=== PATIENT | female | born 2000 | race Caucasian/White ===

== ENCOUNTER 2022-05-25 16:39 | Emergency (ER) | payer MEDICAID, SELFPAY ==
[2022-05-25 16:54] VITALS: BP 106/64; PULSE 107; RESP 18; TEMP 36.8; O2SAT 96; BMI 26.4
[2022-05-25 17:49] LABS: Appearance Urine Clear (Clear); Bilirubin Urine Negative (Negative); Blood Urine 2+ (Negative); Color Urine Yellow (Yellow); Glucose Urine Negative (Negative); Ketones Urine Negative (Negative); Leukocyte Esterase Urine 3+ (Negative); Nitrite Urine Negative (Negative); Protein Urine Negative (Negative); Specific Gravity Urine 1.015 (1.000-1.030); Urobilinogen Urine 0.2 (0.2-1.0); pH Urine 6.5 (5.0-8.5)
[2022-05-25 18:03] LABS: Squamous Epithelial Cell Urine Few (None-Few); WBC Urine 25-50 (0-5)
[2022-05-25 18:04] LABS: Bacteria Urine Few
--- NOTE | 2022-05-25 18:12 | ED.GENADULT ---
HPI - General Adult General Chief complaint: Urogenital Problems, Female Stated complaint: Advised by clinic to come over for kidney Time Seen by Provider: 05/25/22 16:41 History of Present Illness HPI narrative: This 21-year-old female comes in with symptoms of dysuria for the past week. She has increased frequency, pain with voiding, and sense of incomplete emptying. She does not report any fevers. She is not indicating any flank pain. Related Data Previous Rx's Medication Instructions Recorded cephalexin 500 mg capsule 500 mg PO TID 7 days #21 caps 05/25/22 Allergies Allergy/AdvReac Type Severity Reaction Status Date / Time pumpkin Allergy Verified 05/25/22 16:54 horse fly Allergy Uncoded 05/25/22 16:54 Review of Systems Status of ROS: Reports: 10 or more systems reviewed and unremarkable except as noted in History and below Narrative: Constitutional: No fevers, no weight gain or loss. Eyes: No discharge. No vision changes. HENT: No congestion, no sore throat, no ear pain. Cardiovascular: No chest pain, no palpitations. Respiratory: No shortness of breath, no wheezes, no cough. Gastrointestinal: No vomiting, no diarrhea. Lower abdominal pain related to voiding urine. Genitourinary: No hematuria. Pain with voiding. Increased urgency and frequency. Musculoskeletal: Normal range of motion. Skin: No rashes, no pruritis. Neurological: No dizziness, weakness, sensory change, speech change. Endo/Heme/Allergies: No bruising or bleeding. No polydipsia. Pysch: no suicidality, no anxiety, no insomnia. All other systems reviewed and are negative. Exam Narrative: Exam Narrative: Constitutional: Well-developed, well-nourished, no acute distress. HEENT: Normocephalic, atraumatic. Neck: Normal range of motion. Nontender. Supple. Heart: Intact distal pulses. Lungs: No chest discomfort. No wheezes, rhonchi, or rales. Abdomen: Lower abdominal tenderness. No flank pain. Back: Normal range of motion. Extremities: Normal range of motion. No injury. Skin: Intact. No rash. Warm. No erythema or pallor. Neurologic: No altered sensation. No weakness. Alert and oriented. Psychiatric: No suicidality. No anxiety or depression. No insomnia. Nursing notes and vitals signs are reviewed. Const: Vital Signs, click to edit/add: Vital Signs - 24 hr 05/25/22 16:54 Temperature 98.3 F Pulse Rate [Right Pulse Oximeter] 107 H Respiratory Rate 18 Blood Pressure [Ri ght Upper Arm] 106/64 Pulse Oximetry 96 Oxygen Delivery Me thod Room Air Course Vital Signs Vital signs: Initial Vital Signs Temperature 98.3 F 05/25/22 16:54 Temperature Source Temporal Artery Scan 05/25/22 16:54 Pulse Rate 107 H 05/25/22 16:54 Respiratory Rate 18 05/25/22 16:54 Blood Pressure 106/64 05/25/22 16:54 Blood Pressure Mean 78 05/25/22 16:54 Blood Pressure Position Sitting 05/25/22 16:54 Pulse Oximetry 96 05/25/22 16:54 Oxygen Delivery Method 05/25/22 16:54 Vital Signs Temperature 98.3 F 05/25/22 16:54 Pulse Rate 107 H 05/25/22 16:54 Respiratory Rate 18 05/25/22 16:54 Blood Pressure 106/64 05/25/22 16:54 Pulse Oximetry 96 05/25/22 16:54 Oxygen Delivery Method 05/25/22 16:54 Temperature 98.3 F 05/25/22 16:54 Pulse Rate 107 H 05/25/22 16:54 Respiratory Rate 18 05/25/22 16:54 Blood Pressure 106/64 05/25/22 16:54 Pulse Oximetry 96 05/25/22 16:54 Oxygen Delivery Method 05/25/22 16:54 Medical Decision Making MDM Narrative Medical decision making narrative: This patient comes in with symptoms of dysuria for the past week or so. Urinalysis here today shows evidence of urinary tract infection. She does not appear toxic or show signs of more serious progression of this urinary tract infection. I did discuss options for further imaging and analysis which the patient declined in a process of shared decision making. She received a prescription for Keflex. I describe signs and symptoms that would indicate a need for return and re-evaluation. Lab Data Labs: Lab Results 05/25/22 Range/Units 17:37 Urine Color Yellow (Yellow) Urine Appearance Clear (Clear) Urine pH 6.5 (5.0-8.5) Ur Specific [place] 1.015 (1.000-1.030) Urine Protein Negative (Negative) Urine Glucose (UA) Negative (Negative) Urine Ketones Negative (Negative) Urine Blood 2+ A (Negative) Urine Nitrite Negative (Negative) Urine Bilirubin Negative (Negative) Urine Urobilinogen 0.2 (0.2-1.0) Ur Leukocyte Esterase 3+ A (Negative) Urine RBC 10-25 A (0-2) Urine WBC 25-50 A (0-5) Ur Squamous Epith Cells Few (None-Few) Urine Bacteria Few A (None) Discharge Plan Discharge Clinical Impression: Urinary tract infection Condition: Stable Instructions: Urinary Tract Infection in Women (ED) Additional Instructions: Take medication as prescribed. Follow up with MD or return if worsening. Prescriptions: New cephalexin 500 mg capsule 500 mg PO TID 7 Days Qty: 21 0RF Stand Alone Forms: [facility] Info Instructions
[2022-05-25 18:40] VITALS: PULSE 97; O2SAT 97
== END 2022-05-25 18:45 | disposition home or self-care (01) ==
PROVIDERS: Emergency Provider Emergency Medicine Emergency Medical Services
DX: N39.0 Urinary tract infection, site not specified (principal)
CPT/HCPCS: 81003; 81015; 87086; 99283; 99284

== ENCOUNTER 2022-06-01 17:47 | Emergency (ER) | payer MEDICAID, SELFPAY ==
[2022-06-01 18:50] VITALS: BP 119/83; PULSE 96; RESP 18; TEMP 35.6; O2SAT 97; BMI 26.4
[2022-06-01 19:03] LABS: Bacteria Urine Few; Squamous Epithelial Cell Urine Few (None-Few); WBC Urine 0-2 (0-5)
--- NOTE | 2022-06-01 19:49 | ED_ITS ---
HPI - General Adult General Chief complaint: Flank Pain Stated complaint: BLADDER INFECTION Time Seen by Provider: 06/01/22 18:09 History of Present Illness HPI narrative: This 21-year-old female was seen by me a week ago and treated for urinary tract infection. She returns today stating that she feels better except that she still has pain when voiding urine. She also reports some low back pain on occasion. She has not had any fevers. Related Data Previous Rx's Medication Instructions Recorded cephalexin 500 mg capsule 500 mg PO TID 7 days #21 caps 05/25/22 oxybutynin chloride 5 mg 5 mg PO DAILY #10 tabs 06/01/22 tablet,extended release 24 hr Allergies Allergy/AdvReac Type Severity Reaction Status Date / Time pumpkin Allergy Verified 05/25/22 16:54 horse fly Allergy Uncoded 05/25/22 16:54 Review of Systems Status of ROS: Reports: 10 or more systems reviewed and unremarkable except as noted in History and below Narrative: Constitutional: No fevers, no weight gain or loss. Eyes: No discharge. No vision changes. HENT: No congestion, no sore throat, no ear pain. Cardiovascular: No chest pain, no palpitations. Respiratory: No shortness of breath, no wheezes, no cough. Gastrointestinal: No abdominal pain, no vomiting, no diarrhea. Genitourinary: No dysuria, no hematuria. Musculoskeletal: Normal range of motion. Skin: No rashes, no pruritis. Neurological: No dizziness, weakness, sensory change, speech change. Endo/Heme/Allergies: No bruising or bleeding. No polydipsia. Pysch: no suicidality, no anxiety, no insomnia. All other systems reviewed and are negative. PFSH PFSH Social History Smoking Status: Current every day smoker Do you use any of these nicotine containing products: Vaping Products Second hand tobacco smoke exposure: No How often do you have a drink containing alcohol: monthly or less How many standard drinks containing alcohol do you have on a typical day: 1 or 2 How often do you have six or more drinks on one occasion: Never AUDIT-C Alcohol total score: 1 Non-prescribed substance use: denies use Exam Narrative: Exam Narrative: Constitutional: Well-developed, well-nourished, no acute distress. HEENT: Normocephalic, atraumatic. Neck: Normal range of motion. Nontender. Supple. Heart: Regular. No murmurs. Normal rate. Intact distal pulses. Lungs: Clear to auscultation. No chest discomfort. No wheezes, rhonchi, or rales. Abdomen: Normal bowel sounds. Nontender. No rebound tenderness. No flank tenderness when percussing over the kidneys. Genitalia: Deferred. Back: No midline tenderness. Normal range of motion. Extremities: Normal range of motion. No injury. Skin: Intact. No rash. Warm. No erythema or pallor. Neurologic: No altered sensation. No weakness. Alert and oriented. Psychiatric: No suicidality. No anxiety or depression. No insomnia. Nursing notes and vitals signs are reviewed. Const: Vital Signs, click to edit/add: Vital Signs - 24 hr 06/01/22 18:50 Temperature 96.1 F L Pulse Rate [Pulse Oximeter] 96 Respiratory Rate 18 Blood Pressure [Ri ght Upper Arm] 119/83 Pulse Oximetry 97 Oxygen Delivery Me thod Room Air Course Vital Signs Vital signs: Initial Vital Signs Temperature 96.1 F L 06/01/22 18:50 Temperature Source Temporal Artery Scan 06/01/22 18:50 Pulse Rate 96 06/01/22 18:50 Pulse Rhythm 06/01/22 18:50 Respiratory Rate 18 06/01/22 18:50 Blood Pressure 119/83 06/01/22 18:50 Blood Pressure Mean 95 06/01/22 18:50 Blood Pressure Position Sitting 06/01/22 18:50 Pulse Oximetry 97 06/01/22 18:50 Oxygen Delivery Method 06/01/22 18:50 Vital Signs Temperature 96.1 F L 06/01/22 18:50 Pulse Rate 96 06/01/22 18:50 Respiratory Rate 18 06/01/22 18:50 Blood Pressure 119/83 06/01/22 18:50 Pulse Oximetry 97 06/01/22 18:50 Oxygen Delivery Method 06/01/22 18:50 Temperature 96.1 F L 06/01/22 18:50 Pulse Rate 96 06/01/22 18:50 Respiratory Rate 18 06/01/22 18:50 Blood Pressure 119/83 06/01/22 18:50 Pulse Oximetry 97 06/01/22 18:50 Oxygen Delivery Method 06/01/22 18:50 Medical Decision Making MDM Narrative Medical decision making narrative: This patient returns after a week of taking Keflex for urinary tract infection. She continues to have some pain when voiding urine. Urinalysis today shows distinct improvement and no sign of infection. Urine culture is pending. The patient has 1 tablet of Keflex yet and I encouraged her to finish this medicine. It does not seem necessary to continue or change antibiotic treatment. I advised the patient to use [id number] peridium for symptomatic relief. I also provided a few tablets of oxybutynin that may give additional relief if needed. I gave signs and symptoms that would indicate a need for return and re- evaluation. Lab Data Labs: Lab Results 06/01/22 Range/Units 18:16 Urine RBC 2-5 A (0-2) Urine WBC 0-2 (0-5) Ur Squamous Epith Cells Few (None-Few) Urine Bacteria Few A (None) Discharge Plan Discharge Clinical Impression: Dysuria Condition: Unchanged Instructions: Dysuria (ED) Additional Instructions: Drink plenty of fluids. Take peridium (Azo, Uristat, Prodium) as needed and indicated. Use oxybutynin also if not improving. Return if worsening symptoms occur. Prescriptions: New oxybutynin chloride 5 mg tablet extended release 24hr 5 mg PO DAILY Qty: 10 2RF No Action cephalexin 500 mg capsule 500 mg PO TID 7 Days Qty: 21 0RF Follow Up/Referrals: Provider,Not a Local [Primary Care Provider] - Stand Alone Forms: [facility] Info Instructions
== END 2022-06-01 20:14 | disposition home or self-care (01) ==
PROVIDERS: Emergency Provider Emergency Medicine Emergency Medical Services
DX: R30.0 Dysuria (principal)
CPT/HCPCS: 81001; 81015; 87086; 99283; 99284

== ENCOUNTER 2022-10-18 09:16 | Emergency (ER) | payer MEDICAID, SELFPAY ==
[2022-10-18 09:22] VITALS: BP 122/79; PULSE 69; RESP 16; TEMP 37.4; O2SAT 97; BMI 28.3
--- NOTE | 2022-10-18 10:00 | ED.GENADULT ---
HPI - General Adult General Time Seen by Provider: 10:00 Date Seen: 10/18/22 Chief complaint: Urogenital Problems, Female Stated complaint: bladder pain and back kidney pain Time Seen by Provider: 10/18/22 10:00 Source: patient and RN notes reviewed Mode of arrival: ambulatory Limitations: no limitations History of Present Illness HPI narrative: This 22-year-old female comes to the ER accompanied by her mom with concern of bladder spasms and irritation. She has a history of UTIs per report as well as underlying bladder spasms. She saw her primary care doctor at the end of September and was requesting a refill of oxybutynin for bladder spasms. The primary care provider referred her to Urology. About 4 months ago she was given a week's course of oxybutynin which she felt helped her symptoms. She reports bladder spasms and pain. She has also had a little bit of pelvic pain that is been a little different recently, no noted fevers chills, no change in appetite. There is no history of kidney stones in herself or family that there where of. She is sexually active, is on oral contraceptives. Describes burning sensation with urination. Azo does help her symptoms when she takes it. Related Data Home Medications Medication Instructions Recorded Confirmed norgestimate 0.25 mg-ethinyl tab 10/18/22 estradiol 35 mcg tablet (Carmencita) sertraline 25 mg tablet mg 10/18/22 Previous Rx's Medication Instructions Recorded cephalexin 500 mg tablet 500 mg PO TID #15 tabs 10/18/22 phenazopyridine 100 mg tablet 100 mg PO TID #15 tabs 10/18/22 (Pyridium) Allergies Allergy/AdvReac Type Severity Reaction Status Date / Time pumpkin Allergy Verified 05/25/22 16:54 horse fly Allergy Uncoded 05/25/22 16:54 Review of Systems Status of ROS: Reports: 6 or more systems reviewed and unremarkable except as noted in History and below PFSH PFSH Social History Smoking Status: Current every day smoker Do you use any of these nicotine containing products: Vaping Products Second hand tobacco smoke exposure: No How often do you have a drink containing alcohol: monthly or less How many standard drinks containing alcohol do you have on a typical day: 1 or 2 How often do you have six or more drinks on one occasion: Never AUDIT-C Alcohol total score: 1 Non-prescribed substance use: denies use service: No Exam Const: Vital Signs, click to edit/add: Vital Signs - 24 hr 10/18/22 09:22 Temperature 99.3 F Pulse Rate [Left P ulse Oximeter] 69 Respiratory Rate 16 Blood Pressure [Le ft Upper Arm] 122/79 Pulse Oximetry 97 Oxygen Delivery Me thod Room Air Documenting provider has reviewed patient's vital signs: yes Common normals: no apparent distress, average body habitus, oriented x3, no limitations, healthy appearing, alert and well nourished HENMT: Common normals: normocephalic, head/scalp atraumatic and hearing grossly normal bilaterally Head and scalp: normocephalic and atraumatic Eye: Common normals: PERRL, EOMs intact bilaterally, conjunctivae normal and no scleral icterus Conjunctiva: conjunctiva(e) normal Pupil: PERRL Neck & C-Spine: Common normals: full ROM, no lymphadenopathy, supple, no meningeal signs, no JVD and thyroid normal Thyroid: thyroid normal Resp: Common normals: normal respiratory effort, no retractions, no use of accessory muscles and clear to auscultation bilaterally Auscultation: clear to auscultation bilaterally Cardio: Common normals: no JVD, regular rate, regular rhythm, S1 normal heart sound, S2 normal heart sound, no gallops, no clicks and no murmurs Rate: regular rate Rhythm: regular rhythm Heart sounds: S1 normal and S2 normal GI: Common normals: Normal to inspection, nondistended, normoactive bowel sounds present, soft to palpation, no hepatosplenomegaly and no masses Palpation: soft and no hepatosplenomegaly Other: Grimace on palpation of her abdomen throughout, but certainly no rebound or guarding, certainly no underlying palpable masses. : Common normals: no CVA tenderness Bladder/kidney exam: no CVA tenderness Bimanual exam- adnexa, other: cul-de-sac tenderness Recto-Vaginal: cul-de-sac tenderness Back & Pelvis: Common normals: no CVA tenderness Neuro: Common normals: oriented x3 Sensorium/orientation: alert Meningeal signs: no meningeal signs Course Course Hospital Course: Will obtain a CBC and basic metabolic panel to ensure normal kidney function. We will also have her provided a UA, confirm negative urine test. It is unlikely that this is ovarian pathology given that she is on oral contraceptives. Her symptoms certainly seem to be urinary in source an overactive bladder or dysfunctional bladder syndromes certainly are possibility. Need to rule out infectious etiology. Certainly does not seem to be consistent with any stone pathology. If there is significant changes on urinalysis, may consider imaging either in the form of renal ultrasound or CT. Reevaluation(s) Reevaluation #1: Reviewed with patient and her mom that her urinalysis is showing white cells but that there is significant contamination with squamous epithelial cells. We will obtain a urine culture. I would favor treating antibiotics in her with her chronicity of symptoms. Will initiate Keflex in give her peridium for symptom control. We will await the urine culture. If the antibiotics do not help her and the urine culture is indeed negative, this really does increase an underlying bladder disorder in my mind. We have discussed things like overactive bladder, interstitial cystitis. She has the appropriate follow-up scheduled at the end of October, just needs to try to make it to that appointment. If she is having issues in the interim, would refer her back to her primary care provider. Will not be initiating oxybutynin in this situation. Time: 11:11 Vital Signs Vital signs: Initial Vital Signs Temperature 99.3 F 10/18/22 09:22 Temperature Source Temporal Artery Scan 10/18/22 09:22 Pulse Rate 69 10/18/22 09:22 Pulse Rhythm 10/18/22 09:22 Pulse Strength 3+ Normal 10/18/22 09:22 Respiratory Rate 16 10/18/22 09:22 Blood Pressure 122/79 10/18/22 09:22 Blood Pressure Mean 93 10/18/22 09:22 Blood Pressure Position Sitting 10/18/22 09:22 Pulse Oximetry 97 10/18/22 09:22 Oxygen Delivery Method 10/18/22 09:22 Vital Signs Temperature 99.3 F 10/18/22 09:22 Pulse Rate 69 10/18/22 09:22 Respiratory Rate 16 10/18/22 09:22 Blood Pressure 122/79 10/18/22 09:22 Pulse Oximetry 97 10/18/22 09:22 Oxygen Delivery Method 10/18/22 09:22 Temperature 99.3 F 10/18/22 09:22 Pulse Rate 69 10/18/22 09:22 Respiratory Rate 16 10/18/22 09:22 Blood Pressure 122/79 10/18/22 09:22 Pulse Oximetry 97 10/18/22 09:22 Oxygen Delivery Method 10/18/22 09:22 Medical Decision Making Lab Data Lab results reviewed: Yes I reviewed the patient's lab results Labs: Lab Results 10/18/22 10/18/22 10/18/22 Range/Units 10:15 10:15 10:30 WBC 9.36 (4.50-11.00) K/uL RBC 4.70 (4.00-5.20) m/uL Hgb 13.6 (12.0-16.0) gm/dL Hct 39.7 (33.0-51.0) % MCV 85 (80-100) fL MCH 29 (26-34) pg MCHC 34 (32-36) gm/dL RDW Coeff of Hao 13.0 (11.5-15.5) % Plt Count 338 (140-440) K/uL Neut % (Auto) 71.2 (42.0-72.0) % Lymph % (Auto) 18.3 L (20-44) % [place] % (Auto) 8.3 (0.0-11.0) % Eos % (Auto) 1.7 (0.0-7.0) % Baso % (Auto) 0.3 (0.0-3.0) % Neut # (Auto) 6.66 (1.7-7.0) K/uL Lymph # (Auto) 1.70 (0.90-2.90) K/uL [place] # (Auto) 0.80 (0.00-0.90) K/UL Eos # (Auto) 0.16 (0.00-0.50) K/uL Baso # (Auto) 0.03 (0.00-0.30) K/uL Sodium 138 (135-149) mmol/L Potassium 4.2 (3.6-5.1) mmol/L Chloride 107 (96-114) mmol/L Carbon Dioxide 25 (20-32) mmol/L BUN 8 (5-24) mg/dL Creatinine 0.6 (0.5-1.5) mg/dL Estimated Creat Clear 107.43 Estimated GFR 132 ml/min Glucose 90 (60-115) mg/dL Calcium 8.9 (8.4-10.6) mg/dL Urine Color Yellow (Yellow) Urine Appearance Slightly Cloudy A (Clear) Urine pH 6.0 (5.0-8.5) Ur Specific [place] 1.025 (1.000-1.030) Urine Protein 2+ A (Negative) Urine Glucose (UA) Negative (Negative) Urine Ketones Negative (Negative) Urine Blood 2+ A (Negative) Urine Nitrite Negative (Negative) Urine Bilirubin Negative (Negative) Urine Urobilinogen 0.2 (0.2-1.0) Ur Leukocyte Esterase 2+ A (Negative) Urine RBC 2-5 A (0-2) Urine WBC 50-100 A (0-5) Ur Squamous Epith Cells Many A (None-Few) Urine Bacteria Few A (None) Urine HCG, Qual Negative (Negative) Critical Care Time Critical Care Time Critical Care Time: No Discharge Plan Discharge Clinical Impression: Dysuria Condition: Stable Instructions: Dysuria (ED), Overactive Bladder (DC), Interstitial Cystitis (ED) Additional Instructions: Start oral antibiotic and take as prescribed. Can use the pyridium as needed for symptom control. Keep the appointment with Urology that you have scheduled. Need to follow up with primary care provider with ongoing symptoms in the interim. Will contact you if the urine culture does grow anything and you require a change of antibiotics. Activity Level: Activity as Tolerated Discharge Diet: Regular Prescriptions: New cephalexin 500 mg tablet 500 mg PO TID Qty: 15 0RF phenazopyridine [Pyridium] 100 mg tablet 100 mg PO TID Qty: 15 0RF No Action norgestimate-ethinyl estradiol [Carmencita] 0.25-35 mg-mcg tablet Label Comments: TAKE 1 TABLET BY MOUTH EVERY DAY sertraline 25 mg tablet Label Comments: TAKE 1 TABLET BY MOUTH EVERY MORNING Follow Up/Referrals: Provider,Not a Local [Primary Care Provider] - Stand Alone Forms: [facility] Info Instructions
[2022-10-18 10:23] LABS: Basophils Absolute Auto 0.03 K/uL (0.00-0.30); Basophils Percent Auto 0.3 % (0.0-3.0); Eosinophils Absolute Auto 0.16 K/uL (0.00-0.50); Eosinophils Percent Auto 1.7 % (0.0-7.0); Hematocrit 39.7 % (33.0-51.0); Hemoglobin* 13.6 gm/dL (12.0-16.0); Immature Granulocytes Abs Auto 0.02 K/uL (0.00-0.30); Immature Granulocytes Pct Auto 0.2 %; Lymphocytes Percent Auto 18.3 % (20-44); Mean Corpuscular HGB Conc 34 gm/dL (32-36); Mean Corpuscular Hemoglobin 29 pg (26-34); Mean Corpuscular Volume 85 fL (80-100); Monocytes Percent Auto 8.3 % (0.0-11.0); Neutrophils Absolute Auto 6.66 K/uL (1.7-7.0); Neutrophils Percent Auto 71.2 % (42.0-72.0); Platelet Count* 338 K/uL (140-440); White Blood Count* 9.36 K/uL (4.50-11.00)
[2022-10-18 10:24] LABS: Slide Review Reflex No
[2022-10-18 10:37] LABS: Appearance Urine Slightly Cloudy (Clear); Bilirubin Urine Negative (Negative); Blood Urine 2+ (Negative); Color Urine Yellow (Yellow); Glucose Urine Negative (Negative); Ketones Urine Negative (Negative); Leukocyte Esterase Urine 2+ (Negative); Nitrite Urine Negative (Negative); Protein Urine 2+ (Negative); Specific Gravity Urine 1.025 (1.000-1.030); Urobilinogen Urine 0.2 (0.2-1.0)
[2022-10-18 10:38] LABS: Chloride* 107 mmol/L (96-114); Potassium* 4.2 mmol/L (3.6-5.1); Sodium* 138 mmol/L (135-149)
[2022-10-18 10:41] LABS: Blood Urea Nitrogen* 8 mg/dL (5-24); Calcium* 8.9 mg/dL (8.4-10.6); Carbon Dioxide* 25 mmol/L (20-32); Creatinine* 0.6 mg/dL (0.5-1.5); Est. Creatinine Clearance* 107.43; Estimated Glomerular Filt Rate 132 ml/min; Glucose* 90 mg/dL (60-115)
[2022-10-18 10:57] LABS: Bacteria Urine Few; Squamous Epithelial Cell Urine Many (None-Few); Ur HCG Qualitative* Negative (Negative); WBC Urine 50-100 (0-5)
== END 2022-10-18 11:27 | disposition home or self-care (01) ==
PROVIDERS: Emergency Provider Family Medicine
DX: R30.0 Dysuria (principal)
CPT/HCPCS: 36415; 80048; 81001; 81025; 85025; 87086; 99283; 99284

== ENCOUNTER 2022-10-25 09:36 | Emergency (ER) | payer MEDICAID, SELFPAY ==
[2022-10-25 09:56] VITALS: BP 114/73; PULSE 83; RESP 18; TEMP 36.7; O2SAT 97
[2022-10-25 11:57] LABS: Appearance Urine Clear (Clear); Bilirubin Urine Negative (Negative); Blood Urine 2+ (Negative); Color Urine Yellow (Yellow); Glucose Urine Negative (Negative); Ketones Urine Negative (Negative); Leukocyte Esterase Urine 1+ (Negative); Nitrite Urine Negative (Negative); Protein Urine 1+ (Negative); Specific Gravity Urine >= 1.030 (1.000-1.030); Urobilinogen Urine 0.2 (0.2-1.0); pH Urine 5.5 (5.0-8.5)
[2022-10-25 12:20] LABS: RBC Urine 0-2 (0-2); WBC Urine 0-2 (0-5)
[2022-10-25 12:21] LABS: Bacteria Urine Few; Squamous Epithelial Cell Urine Few (None-Few)
== END 2022-10-25 13:49 | disposition home or self-care (01) ==
LOC: ED 13:43
PROVIDERS: Emergency Medicine
DX: Z53.29 Procedure and treatment not carried out because of patient's decision for other reasons (principal)
CPT/HCPCS: 81001; 87086; 99282

== ENCOUNTER 2023-01-30 18:17 | Emergency (ER) | payer MEDICAID, SELFPAY ==
[2023-01-30 18:29] VITALS: BP 116/65; PULSE 116; RESP 16; TEMP 37; O2SAT 96; BMI 27.3
[2023-01-30 19:25] LABS: PCR FLU A Negative PCR FLU A (Negative); PCR FLU B Negative PCR FLU B (Negative); PCR RSV Negative PCR RSV (Negative)
[2023-01-30 19:43] LABS: SARS PCR* Negative SARS-CoV-2 (Negative); Strep A DNA Probe* NOT DETECTED (Not Detectd)
[2023-01-30 21:00] VITALS: BP 125/78; PULSE 84; RESP 16; TEMP 36.7; O2SAT 96
--- NOTE | 2023-01-30 21:09 | ED_ITS ---
HPI - General Adult General Time Seen by Provider: 21:09 Date Seen: 01/30/23 Chief complaint: Fever Stated complaint: Congested Fever Cough Sore throat Time Seen by Provider: 01/30/23 21:09 Source: patient and RN notes reviewed Mode of arrival: ambulatory Limitations: no limitations History of Present Illness HPI narrative: Patient is a 22-year-old female coming in with concern of her right eye mattering which started today. She is also concerned because she states she is in pain. Her head hurts, her forehead hurts. She has sinus pressure. Ears are okay. She has had a sore throat with this. She has had cough cold symptoms. She has got mucopurulent nasal drainage. She has been sick since last week. Nursing staff had collected the viral triple swab as well as a strep on arrival, I am able to share with her that these are negative at this time. A little while before that she states she was sick with a stomach illness. Related Data Home Medications Medication Instructions Recorded Confirmed norgestimate 0.25 mg-ethinyl tab 10/18/22 estradiol 35 mcg tablet (Carmencita) sertraline 25 mg tablet mg 10/18/22 Previous Rx's Medication Instructions Recorded cephalexin 500 mg tablet 500 mg PO TID #15 tabs 10/18/22 phenazopyridine 100 mg tablet 100 mg PO TID #15 tabs 10/18/22 (Pyridium) amoxicillin 875 mg tablet 875 mg PO BID #20 tabs 01/30/23 Allergies Allergy/AdvReac Type Severity Reaction Status Date / Time pumpkin Allergy Verified 05/25/22 16:54 horse fly Allergy Uncoded 05/25/22 16:54 Review of Systems Narrative: As per HPI PFSH PFSH Social History Smoking Status: Current every day smoker Do you use any of these nicotine containing products: Vaping Products Second hand tobacco smoke exposure: No How often do you have a drink containing alcohol: monthly or less How many standard drinks containing alcohol do you have on a typical day: 1 or 2 How often do you have six or more drinks on one occasion: Never AUDIT-C Alcohol total score: 1 Non-prescribed substance use: denies use service: No Exam Const: Vital Signs, click to edit/add: Vital Signs - 24 hr 01/30/23 18:29 Temperature 98.6 F Pulse Rate [Pulse Oximeter] 116 H Respiratory Rate 16 Blood Pressure [Ri ght Upper Arm] 116/65 Pulse Oximetry 96 Documenting provider has reviewed patient's vital signs: yes Common normals: no apparent distress, average body habitus, oriented x3, no limitations, healthy appearing, alert and well nourished General appearance: cooperative, comfortable, well kempt and well developed HENMT: Common normals: normocephalic, head/scalp atraumatic, hearing grossly normal bilaterally, external ears normal, EAC's normal, TM's normal bilaterally (But with some inferior scarring bilaterally), external nose normal, nasal mucous membranes and turbinates normal, moist oral mucous membranes, oropharynx normal, dentition normal and gingiva normal Head and scalp: normocephalic and atraumatic Nose: external nose normal and nasal mucous membranes and turbinates normal External ear: external ears normal External auditory canal: EAC's normal Tympanic membrane: TM's normal bilaterally (But with some inferior scarring bilaterally) Eye: Common normals: PERRL, EOMs intact bilaterally and no scleral icterus Pupil: PERRL Other: Has conjunctival erythema, watering/mattering right eye. No periorbital swelling. Left is normal Neck & C-Spine: Common normals: full ROM, no lymphadenopathy, supple and no meningeal signs Resp: Common normals: normal respiratory effort, no retractions, no use of accessory muscles and clear to auscultation bilaterally Auscultation: clear to auscultation bilaterally Cardio: Common normals: regular rate, regular rhythm, S1 normal heart sound, S2 normal heart sound, no gallops, no clicks and no murmurs Rate: regular rate Rhythm: regular rhythm Heart sounds: S1 normal and S2 normal Neuro: Common normals: oriented x3 Sensorium/orientation: alert Meningeal signs: no meningeal signs Psych: Appearance: well kempt Course Course Hospital Course: Will get patient gentamicin eye drops from our I tray. We will do a CBC to help differentiate of this is underlying viral or possible bacterial etiology. If white count is elevated will consider antibiotics. Do not feel she needs a chest x-ray or other further testing at this time. Reevaluation(s) Reevaluation #1: Have reviewed with patient that her CBC is elevated, would reflect bacterial etiology. I do think we should consider antibiotics, believe this is probably sinusitis that she is suffering from. We will give a dose of oral antibiotics here and send the rest of the prescription into her pharmacy to start tomorrow as per our discussion. We have gentamicin eyedrops for her. Time: 21:51 Vital Signs Vital signs: Initial Vital Signs Temperature 98.6 F 01/30/23 18:29 Temperature Source Temporal Artery Scan 01/30/23 18:29 Pulse Rate 116 H 01/30/23 18:29 Respiratory Rate 16 01/30/23 18:29 Blood Pressure 116/65 01/30/23 18:29 Blood Pressure Mean 82 01/30/23 18:29 Pulse Oximetry 96 01/30/23 18:29 Vital Signs Temperature 98.6 F 01/30/23 18:29 Pulse Rate 116 H 01/30/23 18:29 Respiratory Rate 16 01/30/23 18:29 Blood Pressure 116/65 01/30/23 18:29 Pulse Oximetry 96 01/30/23 18:29 Temperature 98.6 F 01/30/23 18:29 Pulse Rate 116 H 01/30/23 18:29 Respiratory Rate 16 01/30/23 18:29 Blood Pressure 116/65 01/30/23 18:29 Pulse Oximetry 96 01/30/23 18:29 Medical Decision Making Lab Data Lab results reviewed: Yes I reviewed the patient's lab results Labs: Lab Results 01/30/23 01/30/23 Range/Units 18:34 21:26 WBC 13.17 H (4.50-11.00) K/uL RBC 4.31 (4.00-5.20) m/uL Hgb 12.4 (12.0-16.0) gm/dL Hct 37.6 (33.0-51.0) % MCV 87 (80-100) fL MCH 29 (26-34) pg MCHC 33 (32-36) gm/dL RDW Coeff of Hao 12.7 (11.5-15.5) % Plt Count 301 (140-440) K/uL Neut % (Auto) 79.4 H (42.0-72.0) % Lymph % (Auto) 11.4 L (20-44) % [place] % (Auto) 7.3 (0.0-11.0) % Eos % (Auto) 1.5 (0.0-7.0) % Baso % (Auto) 0.2 (0.0-3.0) % Neut # (Auto) 10.50 H (1.7-7.0) K/uL Lymph # (Auto) 1.50 (0.90-2.90) K/uL [place] # (Auto) 1.00 H (0.00-0.90) K/UL Eos # (Auto) 0.20 (0.00-0.50) K/uL Baso # (Auto) 0.00 (0.00-0.30) K/uL SARS-CoV-2 (PCR) Negative SARS-CoV-2 (Negative) Influenza Type A (PCR) Negative PCR FLU A (Negative) Influenza Type B (PCR) Negative PCR FLU B (Negative) RSV (PCR) Negative PCR RSV (Negative) Group A Strep DNA NOT DETECTED (Not Detectd) Discharge Plan Discharge Clinical Impression: Acute conjunctivitis, Sinusitis Patient Disposition: Home, Self-Care Condition: Stable Instructions: Sinusitis (ED), Conjunctivitis (ED) Additional Instructions: Use gentamicin eye drops, 2 drops to right eye 4x/day for up to 5 days; can use the same way in the left eye if you develop pink eye in that eye. Next dose of oral antibiotics due tomorrow morning, take as prescribed. Can use Tylenol/ibuprofen as needed for discomfort, follow bottle directions for dosing. Wash hands good to stop spread of pink eye. If you are not improving over the next week, or worsening at any point or have further concerns, please seek re- evaluation. Activity Level: Activity as Tolerated Discharge Diet: Regular Prescriptions: New amoxicillin 875 mg tablet 875 mg PO BID Qty: 20 0RF No Action norgestimate-ethinyl estradiol [Carmenciat] 0.25-35 mg-mcg tablet Patient Comments: TAKE 1 TABLET BY MOUTH EVERY DAY sertraline 25 mg tablet Patient Comments: TAKE 1 TABLET BY MOUTH EVERY MORNING cephalexin 500 mg tablet 500 mg PO TID Qty: 15 0RF phenazopyridine [Pyridium] 100 mg tablet 100 mg PO TID Qty: 15 0RF Follow Up/Referrals: Provider,Not a Local [Primary Care Provider] - Stand Alone Forms: [facility] Info Instructions
[2023-01-30 21:32] LABS: Basophils Percent Auto 0.2 % (0.0-3.0); Eosinophils Percent Auto 1.5 % (0.0-7.0); Hematocrit 37.6 % (33.0-51.0); Hemoglobin* 12.4 gm/dL (12.0-16.0); Immature Granulocytes Pct Auto 0.2 %; Lymphocytes Percent Auto 11.4 % (20-44); Mean Corpuscular HGB Conc 33 gm/dL (32-36); Mean Corpuscular Hemoglobin 29 pg (26-34); Mean Corpuscular Volume 87 fL (80-100); Monocytes Percent Auto 7.3 % (0.0-11.0); Neutrophils Percent Auto 79.4 % (42.0-72.0); Platelet Count* 301 K/uL (140-440); RDW Coefficient of Variation % 12.7 % (11.5-15.5); Red Blood Count 4.31 m/uL (4.00-5.20); White Blood Count* 13.17 K/uL (4.50-11.00)
[2023-01-30 21:46] LABS: Slide Review Reflex No
[2023-01-30] MEDS: AMOXICILLIN 250 MG CAPSULE 500 MG PO (22:00)
[2023-01-30 22:10] VITALS: BP 110/70; PULSE 89; RESP 16; TEMP 36.7; O2SAT 96
[2023-01-30 22:22] VITALS: BP 110/70; PULSE 89; RESP 16; TEMP 36.7
== END 2023-01-30 22:23 | disposition home or self-care (01) ==
PROVIDERS: Emergency Provider Family Medicine
DX: H10.9 Unspecified conjunctivitis (principal); J32.9 Chronic sinusitis, unspecified
CPT/HCPCS: 36415; 85025; 87631; 87651; 99283; 99284; A9270

== ENCOUNTER 2023-03-21 17:59 | Emergency (ER) | payer MEDICAID, SELFPAY ==
[2023-03-21 18:01] VITALS: BP 126/91; PULSE 108; RESP 18; TEMP 36.6; O2SAT 95; BMI 4021.6
[2023-03-21 18:51] LABS: Appearance Urine Cloudy (Clear); Bilirubin Urine Negative (Negative); Blood Urine 1+ (Negative); Color Urine Yellow (Yellow); Glucose Urine Negative (Negative); Ketones Urine Negative (Negative); Specific Gravity Urine >= 1.030 (1.000-1.030)
[2023-03-21 18:52] LABS: Bacteria Urine Few; Leukocyte Esterase Urine 1+ (Negative); Nitrite Urine Positive (Negative); Protein Urine 2+ (Negative); RBC Urine 0-2 (0-2); Squamous Epithelial Cell Urine Few (None-Few); Urobilinogen Urine 0.2 (0.2-1.0); pH Urine 5.5 (5.0-8.5)
[2023-03-21 18:53] LABS: Fine Granular Casts Urine Few
--- NOTE | 2023-03-21 19:23 | ED_ITS ---
HPI - General Adult General Chief complaint: Urogenital Problems, Female Stated complaint: Bladder issues Time Seen by Provider: 03/21/23 18:04 Source: patient Mode of arrival: ambulatory Limitations: no limitations History of Present Illness HPI narrative: 22-year-old female coming in today complaining of dysuria and increased urgency for 3 weeks on and off. Her symptoms do come and go. She states that she has frequent UTIs. States that she had a full workup the beginning of October and found out that she had chlamydia at that time. However she has had dysuria before that diagnosis and continues to have it after. Related Data Home Medications Medication Instructions Recorded Confirmed norgestimate 0.25 mg-ethinyl 1 tab DAILY 10/18/22 estradiol 35 mcg tablet (Carmencita) sertraline 25 mg tablet 25 mg PO Q24H 10/18/22 03/21/23 Previous Rx's Medication Instructions Recorded cephalexin 500 mg tablet 500 mg PO TID #15 tabs 10/18/22 phenazopyridine 100 mg tablet 100 mg PO TID #15 tabs 10/18/22 (Pyridium) amoxicillin 875 mg tablet 875 mg PO BID #20 tabs 01/30/23 sulfamethoxazole 800 1 tab PO BID 5 days #10 tabs 03/21/23 mg-trimethoprim 160 mg tablet (Bactrim DS) Allergies Allergy/AdvReac Type Severity Reaction Status Date / Time pumpkin Allergy Verified 05/25/22 16:54 horse fly Allergy Uncoded 05/25/22 16:54 Review of Systems Status of ROS: Reports: 10 or more systems reviewed and unremarkable except as noted in History and below PFSH PFS Medical History GERD (gastroesophageal reflux disease) ?K21.9 - Gastro-esophageal reflux disease without esophagitis (ICD-10) Urinary obstruction ?N13.9 - Obstructive and reflux uropathy, unspecified (ICD-10) Major depressive disorder, single episode, severe ?F32.2 - Major depressive disorder, single episode, severe without psychotic features (ICD-10) Reflux esophagitis ?K21.00 - Gastro-esophageal reflux disease with esophagitis, without bleeding (ICD-10) Surgical History History of ear surgery ?Z98.890 - Other specified postprocedural states (ICD-10) Social History Smoking Status: Current every day smoker Do you use any of these nicotine containing products: Vaping Products Second hand tobacco smoke exposure: No How often do you have a drink containing alcohol: monthly or less How many standard drinks containing alcohol do you have on a typical day: 1 or 2 How often do you have six or more drinks on one occasion: Never AUDIT-C Alcohol total score: 1 Non-prescribed substance use: denies use service: No Exam 2 Narrative: Exam Narrative: Well-nourished well-developed patient in no acute distress. Alert and oriented. Answers questions appropriately. Mood and affect are appropriate. Thoughts are goal oriented and rational. No tangential or magical thinking noted. Patient speaks in full sentences without needing to catch her breath. HEENT: Normocephalic atraumatic. Pupils are equally round reactive to light. Extraocular muscles are intact. Conjunctivae are moist without any icterus noted. Moist mucous membranes. Abdomen soft and nontender. Skin: Well perfused without any obvious rashes. Const: Vital Signs, click to edit/add: Vital Signs - 24 hr 03/21/23 18:01 Temperature 97.9 F Pulse Rate [Right Pulse Oximeter] 108 H Respiratory Rate 18 Blood Pressure [Ri ght Upper Arm] 126/91 H Pulse Oximetry 95 Oxygen Delivery Me thod Room Air Course Course Hospital Course: UA showing abnormalities consistent with a UTI. Vital Signs Vital signs: Initial Vital Signs Temperature 97.9 F 03/21/23 18:01 Temperature Source Temporal Artery Scan 03/21/23 18:01 Pulse Rate 108 H 03/21/23 18:01 Respiratory Rate 18 03/21/23 18:01 Blood Pressure 126/91 H 03/21/23 18:01 Blood Pressure Mean 102 03/21/23 18:01 Blood Pressure Position Sitting 03/21/23 18:01 Pulse Oximetry 95 03/21/23 18:01 Oxygen Delivery Method Room Air 03/21/23 18:01 Vital Signs Temperature 97.9 F 03/21/23 18:01 Pulse Rate 108 H 03/21/23 18:01 Respiratory Rate 18 03/21/23 18:01 Blood Pressure 126/91 H 03/21/23 18:01 Pulse Oximetry 95 03/21/23 18:01 Oxygen Delivery Method Room Air 03/21/23 18:01 Temperature 97.9 F 03/21/23 18:01 Pulse Rate 108 H 03/21/23 18:01 Respiratory Rate 18 03/21/23 18:01 Blood Pressure 126/91 H 03/21/23 18:01 Pulse Oximetry 95 03/21/23 18:01 Oxygen Delivery Method Room Air 03/21/23 18:01 Medical Decision Making MDM Narrative Medical decision making narrative: 22-year-old female with a UTI will treat with Bactrim DS p.o. b.i.d. for 5 days. I do want her to follow up with her primary care provider to discuss recurrent UTIs which is something she tells me she has not yet done. Lab Data Lab results reviewed: Yes I reviewed the patient's lab results Labs: Lab Results 03/21/23 Range/Units 18:34 Urine Color Yellow (Yellow) Urine Appearance Cloudy A (Clear) Urine pH 5.5 (5.0-8.5) Ur Specific [place] >= 1.030 (1.000-1.030) Urine Protein 2+ A (Negative) Urine Glucose (UA) Negative (Negative) Urine Ketones Negative (Negative) Urine Blood 1+ A (Negative) Urine Nitrite Positive A (Negative) Urine Bilirubin Negative (Negative) Urine Urobilinogen 0.2 (0.2-1.0) Ur Leukocyte Esterase 1+ A (Negative) Urine RBC 0-2 (0-2) Urine WBC 10-25 A (0-5) Ur Squamous Epith Cells Few (None-Few) Urine Bacteria Few A (None) Fine Granular Casts Few A (None) Discharge Plan Discharge Clinical Impression: Urinary tract infection Patient Disposition: Home, Self-Care Condition: Stable Additional Instructions: Take all antibiotics as prescribed. I recommend you follow-up with your primary care provider to discuss frequent UTIs. Prescriptions: New sulfamethoxazole-trimethoprim [Bactrim DS] 800-160 mg tablet 1 tab PO BID 5 Days Qty: 10 0RF No Action norgestimate-ethinyl estradiol [Carmencita] 0.25-35 mg-mcg tablet 1 tab DAILY Patient Comments: TAKE 1 TABLET BY MOUTH EVERY DAY sertraline 25 mg tablet 25 mg PO Q24H Patient Comments: TAKE 1 TABLET BY MOUTH EVERY MORNING cephalexin 500 mg tablet 500 mg PO TID Qty: 15 0RF phenazopyridine [Pyridium] 100 mg tablet 100 mg PO TID Qty: 15 0RF amoxicillin 875 mg tablet 875 mg PO BID Qty: 20 0RF Follow Up/Referrals: Provider,Not a Local [Primary Care Provider] - Stand Alone Forms: [facility] Info Instructions
== END 2023-03-21 19:36 | disposition home or self-care (01) ==
PROVIDERS: Emergency Provider Family Medicine
DX: N39.0 Urinary tract infection, site not specified (principal)
CPT/HCPCS: 81001; 87086; 99283; 99284

== ENCOUNTER 2023-07-19 21:40 | Emergency (ER) | payer MEDICAID, SELFPAY ==
[2023-07-19 22:00] VITALS: BP 117/82; PULSE 81; RESP 18; TEMP 36.8; O2SAT 99; BMI 29.3
--- NOTE | 2023-07-19 22:04 | ED.FEMALEGU ---
HPI - Female Genitourinary General Time Seen by Provider: 22:04 Date Seen: 07/19/23 Chief complaint: Urogenital Problems, Female Stated complaint: bladder infection Time Seen by Provider: 07/19/23 22:03 Source: patient and RN notes reviewed Mode of arrival: ambulatory Limitations: no limitations History of Present Illness HPI Narrative: Patient is a 22-year-old female coming in with concern ongoing a bladder infection that is not improving. She states she gets bladder infections, she wants to get to the bottom of these. She was at a medical provider last week, wanted to be admitted for further workup of her bladder infections. She was placed on Macrobid on July 17, has been taking it. 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 She states going over bumps hurts. She will feel a electrical jolt going up the urethra area. She states it hurts to walk, will feel the same thing going into the urethra. She states it is hurting to pee still. She has been to Urology, thinks she was last there in October, she states the lady put a catheter up into her an she states she was treated for chlamydia. She states she did the follow-up and the chlamydia was gone. She does not think she has been subsequently tested for it. She notes no nausea vomiting, no fevers or chills. She is sexually active. MD elicited complaint: UTI Related Data Home Medications Medication Instructions Recorded Confirmed nitrofurantoin 1 cap PO BID 07/19/23 07/19/23 monohydrate/macrocrystals 100 mg capsule Previous Rx's Medication Instructions Recorded phenazopyridine 100 mg tablet 100 mg PO TID PRN pain #15 tabs 07/19/23 (Pyridium) Allergies Allergy/AdvReac Type Severity Reaction Status Date / Time melatonin AdvReac Mild Nausea/Vomi Verified 07/19/23 22:06 ting Review of Systems Narrative: As per HPI. PFS PFS Medical History GERD (gastroesophageal reflux disease) ?K21.9 - Gastro-esophageal reflux disease without esophagitis (ICD-10) Urinary obstruction ?N13.9 - Obstructive and reflux uropathy, unspecified (ICD-10) Major depressive disorder, single episode, severe ?F32.2 - Major depressive disorder, single episode, severe without psychotic features (ICD-10) Reflux esophagitis ?K21.00 - Gastro-esophageal reflux disease with esophagitis, without bleeding (ICD-10) Surgical History History of ear surgery ?Z98.890 - Other specified postprocedural states (ICD-10) Social History Smoking Status: Never smoker Do you use any of these nicotine containing products: Vaping Products Second hand tobacco smoke exposure: No How often do you have a drink containing alcohol: monthly or less How many standard drinks containing alcohol do you have on a typical day: 1 or 2 How often do you have six or more drinks on one occasion: Never AUDIT-C Alcohol total score: 1 Non-prescribed substance use: denies use service: No Exam Const: Vital Signs, click to edit/add: Vital Signs - 24 hr 07/19/23 22:00 07/19/23 22:52 Temperature 98.2 F 98.2 F Pulse Rate [Right Pulse Oximeter] 81 79 Respiratory Rate 18 18 Blood Pressure [Ri ght Upper Arm] 117/82 120/70 Pulse Oximetry 99 99 Oxygen Delivery Me thod Room Air Room Air 22-year-old female seen in exam room 3, she is lying in the bed, looks comfortable, is alert interactive, no apparent distress. Sclera clear, face atraumatic, able speak in complete sentences. Lungs are clear, good air entry no wheezing crackles. CV regular rate and rhythm no murmur. Abdomen is soft, nondistended, bowel sounds are present. No organomegaly, has some suprapubic tenderness when I palpate but certainly no rebound or guarding, do not feel any masses. Pelvic exam at this point is deferred. Documenting provider has reviewed patient's vital signs: yes Course Course ED Course: Patient had already left a urine specimen which needs to be ran by lab. Have discussed with her that I do think we should do a pelvic exam and collect GC and chlamydia swab. She is declining doing this at this point, urged her to consider this. Can do some basic lab work to ensure her white count and kidney functions are normal. She did agree to that. Will await the urinalysis at this point. Reevaluation(s) Time of Reevaluation #1: 23:21 Reevaluation #1: Reviewed with patient that her cell counts and basic metabolic panel are all normal. Her urinalysis shows some very minimal abnormalities with few red cells, few white cells few bacteria. She is only been on the Macrobid for 2 days, do not feel that this is sufficient to say she is not responding. Her urine certainly does not look all that bad. She understands will be doing a urine culture, if there is indication for antibiotic change, we can do so from our culture. We discussed signs and symptoms of worsening. She now has people in the room with her, I did ask her if she would comply with me completing the other test we talked about earlier. She is adamant she does not want this done. I have asked her to follow up with her primary care provider to have this tested, meaning the chlamydia and gonorrhea that we discussed earlier. She did state understanding and shook her head yes. Vital Signs Vital signs: Initial Vital Signs Temperature 98.2 F 07/19/23 22:00 Temperature Source Temporal Artery Scan 07/19/23 22:00 Pulse Rate 81 07/19/23 22:00 Respiratory Rate 18 07/19/23 22:00 Blood Pressure 117/82 07/19/23 22:00 Blood Pressure Mean 93 07/19/23 22:00 Blood Pressure Position Sitting 07/19/23 22:00 Pulse Oximetry 99 07/19/23 22:00 Oxygen Delivery Method Room Air 07/19/23 22:00 Vital Signs Temperature 98.2 F 07/19/23 22:00 Pulse Rate 81 07/19/23 22:00 Respiratory Rate 18 07/19/23 22:00 Blood Pressure 117/82 07/19/23 22:00 Pulse Oximetry 99 07/19/23 22:00 Oxygen Delivery Method Room Air 07/19/23 22:00 Temperature 98.2 F 07/19/23 22:52 Pulse Rate 79 07/19/23 22:52 Respiratory Rate 18 07/19/23 22:52 Blood Pressure 120/70 07/19/23 22:52 Pulse Oximetry 99 07/19/23 22:52 Oxygen Delivery Method Room Air 10/11/23 22:52 MDM - Female Genitourinary Lab Data Labs: Lab Results 07/19/23 07/19/23 Range/Units 21:42 22:27 WBC 10.85 (4.50-11.00) K/uL RBC 4.71 (4.00-5.20) m/uL Hgb 13.5 (12.0-16.0) gm/dL Hct 40.6 (33.0-51.0) % MCV 86 (80-100) fL MCH 29 (26-34) pg MCHC 33 (32-36) gm/dL RDW Coeff of Hao 12.0 (11.5-15.5) % Plt Count 349 (140-440) K/uL Neut % (Auto) 66.3 (42.0-72.0) % Lymph % (Auto) 22.3 (20-44) % [place] % (Auto) 8.1 (0.0-11.0) % Eos % (Auto) 2.5 (0.0-7.0) % Baso % (Auto) 0.2 (0.0-3.0) % Neut # (Auto) 7.19 H (1.7-7.0) K/uL Lymph # (Auto) 2.42 (0.90-2.90) K/uL [place] # (Auto) 0.90 (0.00-0.90) K/UL Eos # (Auto) 0.27 (0.00-0.50) K/uL Baso # (Auto) 0.02 (0.00-0.30) K/uL Abs Immat Gran (auto) 0.07 (0.00-0.30) K/uL Imm/Tot Granulo (auto) 0.6 % Sodium 137 (135-149) mmol/L Potassium 3.9 (3.6-5.1) mmol/L Chloride 103 (96-114) mmol/L Carbon Dioxide 25 (20-32) mmol/L Anion Gap 9 (7-15) mEq/L BUN 10 (5-24) mg/dL Creatinine 0.7 (0.5-1.5) mg/dL Estimated Creat Clear 92.08 Estimated GFR 127 ml/min Glucose 105 (60-115) mg/dL Calcium 9.4 (8.4-10.6) mg/dL Urine Color Yellow (Yellow) Urine Appearance Clear (Clear) Urine pH 5.5 (5.0-8.5) Ur Specific [place] >= 1.030 (1.000-1.030) Urine Protein Negative (Negative) Urine Glucose (UA) Negative (Negative) Urine Ketones Trace A (Negative) Urine Blood Trace-intact A (Negative) Urine Nitrite Negative (Negative) Urine Bilirubin Negative (Negative) Urine Urobilinogen 0.2 (0.2-1.0) Ur Leukocyte Esterase Trace A (Negative) Urine RBC 2-5 A (0-2) Urine WBC 5-10 A (0-5) Ur Squamous Epith Cells Few (None-Few) Urine Bacteria Few A (None) Critical Care Time Critical Care Time Critical Care Time: No Discharge Plan Discharge Clinical Impression: Urinary tract infection Patient Disposition: Home, Self-Care Condition: Stable Instructions: Urinary Tract Infection in Women (ED) Additional Instructions: Need to complete the Macrobid that you are on, take as prescribed. Have sent a prescription for some peridium in, this is the medicine that turned see urine bright yellow orange. A can stain underwear and contacts, do not use contacts while you are on this. It may help with some of your symptoms, this does not treat infection. I need you to follow-up with your primary care provider within the next week, sooner if you are having problems. Activity Level: Activity as Tolerated Prescriptions: New phenazopyridine [Pyridium] 100 mg tablet 100 mg PO TID PRN (Reason: pain) Qty: 15 0RF No Action nitrofurantoin monohyd/m-cryst 100 mg capsule 1 cap PO BID Follow Up/Referrals: Provider,Not a Local [Primary Care Provider] - Stand Alone Forms: MyHealth Info Instructions
[2023-07-19 22:10] LABS: Appearance Urine Clear (Clear); Bilirubin Urine Negative (Negative); Blood Urine Trace-intact (Negative); Color Urine Yellow (Yellow); Glucose Urine Negative (Negative); Ketones Urine Trace (Negative); Leukocyte Esterase Urine Trace (Negative); Nitrite Urine Negative (Negative); Protein Urine Negative (Negative); Specific Gravity Urine >= 1.030 (1.000-1.030); Urobilinogen Urine 0.2 (0.2-1.0); pH Urine 5.5 (5.0-8.5)
[2023-07-19 22:29] LABS: Bacteria Urine Few; Squamous Epithelial Cell Urine Few (None-Few)
[2023-07-19 22:34] LABS: Basophils Absolute Auto 0.02 K/uL (0.00-0.30); Basophils Percent Auto 0.2 % (0.0-3.0); Eosinophils Absolute Auto 0.27 K/uL (0.00-0.50); Eosinophils Percent Auto 2.5 % (0.0-7.0); Hematocrit 40.6 % (33.0-51.0); Hemoglobin* 13.5 gm/dL (12.0-16.0); Immature Granulocytes Abs Auto 0.07 K/uL (0.00-0.30); Immature Granulocytes Pct Auto 0.6 %; Lymphocytes Absolute Auto 2.42 K/uL (0.90-2.90); Lymphocytes Percent Auto 22.3 % (20-44); Mean Corpuscular HGB Conc 33 gm/dL (32-36); Mean Corpuscular Hemoglobin 29 pg (26-34); Mean Corpuscular Volume 86 fL (80-100); Monocytes Percent Auto 8.1 % (0.0-11.0); Neutrophils Absolute Auto 7.19 K/uL (1.7-7.0); Neutrophils Percent Auto 66.3 % (42.0-72.0); Platelet Count* 349 K/uL (140-440); Red Blood Count 4.71 m/uL (4.00-5.20); White Blood Count* 10.85 K/uL (4.50-11.00)
[2023-07-19 22:35] LABS: Slide Review Reflex No
[2023-07-19 22:52] VITALS: BP 120/70; PULSE 79; RESP 18; TEMP 36.8; O2SAT 99
[2023-07-19 22:55] LABS: Chloride* 103 mmol/L (96-114); Potassium* 3.9 mmol/L (3.6-5.1); Sodium* 137 mmol/L (135-149)
[2023-07-19 22:58] LABS: Creatinine* 0.7 mg/dL (0.5-1.5); Est. Creatinine Clearance* 92.08; Estimated Glomerular Filt Rate 127 ml/min
[2023-07-19 22:59] LABS: Anion Gap 9 mEq/L (7-15); Blood Urea Nitrogen* 10 mg/dL (5-24); Calcium* 9.4 mg/dL (8.4-10.6); Carbon Dioxide* 25 mmol/L (20-32); Glucose* 105 mg/dL (60-115)
[2023-07-19 23:55] VITALS: BP 120/70; PULSE 79; RESP 18; TEMP 36.8
== END 2023-07-19 23:55 | disposition home or self-care (01) ==
PROVIDERS: Emergency Provider Family Medicine
DX: N39.0 Urinary tract infection, site not specified (principal)
CPT/HCPCS: 36415; 80048; 81001; 85025; 87086; 99283

== ENCOUNTER 2024-10-06 00:12 | Emergency (ER) | payer OTHER, SELFPAY ==
[2024-10-06 00:27] VITALS: BP 124/75; PULSE 143; RESP 16; TEMP 37.7; O2SAT 92; BMI 27.3
--- NOTE | 2024-10-06 00:41 | ED_ITS ---
HPI - General Adult General Chief complaint: Sore Throat Stated complaint: possible strep throat Time Seen by Provider: 10/06/24 00:15 Source: patient Mode of arrival: ambulatory Limitations: no limitations History of Present Illness HPI narrative: 24-year-old female presents to the emergency department with a whole host of unrelated complaints. She reports that she has had dysuria for a month and has been using [id number] azo to treat this. Does not endorse any unusual vaginal discharge, STD risk. LMP 09/25. She reports 3 days of posterior neck area pain, points to the greater occipital/C to C3 area bilaterally, right greater than left. Achy in nature radiates to the posterior auricular and submandibular areas. This is accompanied by sore throat and painful swallowing. Reports that she has been having chills for the past 2 days and had vomiting x1 today. She says that ?her whole body felt limp?. Does not give me a duration on this. No shortness of breath, no bloody diarrhea, no focal neurological changes. Did not try taking any medication tonight to help with symptoms. Reports that her past medical history is benign, denies major long-term health problems. No prescription medications, no allergies. ROS is notable for the generalized, HEENT and urinary symptoms as above, otherwise denies times 12 systems Related Data Home Medications ?Medication ?Instructions ?Recorded ?Confirmed nitrofurantoin 1 cap PO BID 07/19/23 07/19/23 monohydrate/macrocrystals 100 mg capsule Previous Rx's ?Medication ?Instructions ?Recorded phenazopyridine 100 mg tablet 100 mg PO TID PRN pain #15 tabs 07/19/23 (Pyridium) cephalexin 500 mg capsule 500 mg PO BID 10 days #20 caps 10/06/24 Allergies Allergy/AdvReac Type Severity Reaction Status Date / Time melatonin AdvReac Mild Nausea/Vomi Verified 07/19/23 22:06 ting [facility] Medical History GERD (gastroesophageal reflux disease) ?K21.9 - Gastro-esophageal reflux disease without esophagitis (ICD-10) Urinary obstruction ?N13.9 - Obstructive and reflux uropathy, unspecified (ICD-10) Major depressive disorder, single episode, severe ?F32.2 - Major depressive disorder, single episode, severe without psychotic features (ICD-10) Reflux esophagitis ?K21.00 - Gastro-esophageal reflux disease with esophagitis, without bleeding (ICD-10) Surgical History History of ear surgery ?Z98.890 - Other specified postprocedural states (ICD-10) Social History Smoking Status: Never smoker Do you use any of these nicotine containing products: Vaping Products Second hand tobacco smoke exposure: No How often do you have a drink containing alcohol: monthly or less How many standard drinks containing alcohol do you have on a typical day: 1 or 2 How often do you have six or more drinks on one occasion: Never AUDIT-C Alcohol total score: 1 Non-prescribed substance use: denies use service: No Exam Const: Vital Signs, click to edit/add: Vital Signs - 24 hr 10/06/24 00:27 Temperature 99.8 F H Pulse Rate [Left P ulse Oximeter] 143 H Respiratory Rate 16 Blood Pressure [Le ft Upper Arm] 124/75 Pulse Oximetry 92 Oxygen Delivery Me thod Room Air Documenting provider has reviewed patient's vital signs: yes Common normals: no apparent distress General appearance: cooperative Other: Does not appear acutely ill HENMT: Common normals: normocephalic, TM's normal bilaterally, nasal mucous membranes and turbinates normal, moist oral mucous membranes and dentition normal Head and scalp: normocephalic Nose: nasal mucous membranes and turbinates normal Tympanic membrane: TM's normal bilaterally Other: Geographic tongue. Mild erythema tonsillar pillars. Clear mucus postnasal drip, tonsils 1+ with no exudate. No petechiae. Eye: Common normals: conjunctivae normal General eye: normal appearance of both eyes Conjunctiva: conjunctiva(e) normal Neck & C-Spine: Common normals: full ROM Other: Mild submandibular lymphadenopathy. Neck moves freely. No meningeal signs. Mild tenderness to palpation of occipital area, certainly no guarding. Moves neck freely with no stiffness. Resp: Common normals: normal respiratory effort, no use of accessory muscles and clear to auscultation bilaterally Effort & inspection: able to speak in complete sentences Auscultation: clear to auscultation bilaterally Cardio: Common normals: regular rate, regular rhythm, S1 normal heart sound, S2 normal heart sound and no murmurs Rate: regular rate Rhythm: regular rhythm Heart sounds: S1 normal and S2 normal Extremity: Common normals: normal capillary refill and no pedal edema Neuro: Speech: speech normal Motor exam: no tremor noted and no movement abnormalities noted Psych: Appearance: grossly normal Attitude: calm Insight: fair Judgement: fair Skin: Common normals: no rashes or lesions noted General skin exam: no rashes or lesions noted Course Course ED Course: 24-year-old female with sore throat, body aches, dysuria and vomiting x1 with low-grade fever. Suspect influenza. No signs of airway compromise, sepsis or severe illness. Recommended swabs for influenza a, COVID and RSV, strep. Urinalysis. Will give Tylenol 1000 mg p.o. x1 and 4 mg of Zofran because of the vomiting tonight. Does not appear dehydrated at this time. Await lab findings. Reevaluation(s) Time of Reevaluation #1: 01:37 Reevaluation #1: Patient feeling somewhat better after Zofran and Tylenol. Counseled on findings. Positive for strep pharyngitis and bladder infection. Can treat both with Keflex. Will give Keflex 500 p.o. x1. She is tolerating oral fluids here in the ED. continue to push fluids. Prescription for Keflex sent to pharmacy. Alarm symptoms reviewed, written instructions provided. Primary care follow-up if not improving in 2-3 days. Vital Signs Vital signs: Initial Vital Signs Temperature 99.8 F H 10/06/24 00:27 Temperature Source Temporal Artery Scan 10/06/24 00:27 Pulse Rate 143 H 10/06/24 00:27 Pulse Rhythm Regular 10/06/24 00:27 Respiratory Rate 16 10/06/24 00:27 Blood Pressure 124/75 10/06/24 00:27 Blood Pressure Mean 91 10/06/24 00:27 Blood Pressure Position Sitting 10/06/24 00:27 Pulse Oximetry 92 10/06/24 00:27 Oxygen Delivery Method Room Air 10/06/24 00:27 Vital Signs Temperature 99.8 F H 10/06/24 00:27 Pulse Rate 143 H 10/06/24 00:27 Respiratory Rate 16 10/06/24 00:27 Blood Pressure 124/75 10/06/24 00:27 Pulse Oximetry 92 10/06/24 00:27 Oxygen Delivery Method Room Air 10/06/24 00:27 Temperature 99.8 F H 10/06/24 00:27 Pulse Rate 143 H 10/06/24 00:27 Respiratory Rate 16 10/06/24 00:27 Blood Pressure 124/75 10/06/24 00:27 Pulse Oximetry 92 10/06/24 00:27 Oxygen Delivery Method Room Air 10/06/24 00:27 Medications Administered Medications: Generic Name Dose Route Start Last Admin Trade Name Joy PRN Reason Stop Dose Admin Acetaminophen 1,000 mg 10/06/24 00:40 10/06/24 01:20 Acetaminophen 500 Mg Tablet PO 10/06/24 00:41 1,000 mg ONCE ONE Administration Ondansetron HCl 4 mg 10/06/24 00:40 10/06/24 01:20 Ondansetron Odt 4 Mg Tab PO 10/06/24 00:41 4 mg ONCE ONE Administration Medical Decision Making Lab Data Lab results reviewed: Yes I reviewed the patient's lab results Lab results narrative: Strep positive, also suspicious for urinary infection. Labs: Lab Results 10/06/24 10/06/24 Range/Units 00:31 00:40 Urine Color Delaney A (Yellow) Urine Appearance Cloudy A (Clear) Urine pH 5.5 (5.0-8.5) Ur Specific [place] 1.020 (1.000-1.030) Urine Protein 1+ A (Negative) Urine Glucose (UA) Negative (Negative) Urine Ketones 3+ A (Negative) Urine Blood Trace-intact A (Negative) Urine Nitrite Positive A (Negative) Urine Bilirubin 1+ A (Negative) Urine Urobilinogen 4.0 A (0.2-1.0) Ur Leukocyte Esterase 2+ A (Negative) Urine RBC 0-2 (0-2) Urine WBC 10-25 A (0-5) Urine WBC Clumps None (None) Ur Squamous Epith Cells Few (None-Few) Amorphous Sediment Few A (None) Urine Bacteria Many A (None) SARS-CoV-2 (PCR) Negative SARS-CoV-2 (Negative) Influenza Type A (PCR) Negative PCR FLU A (Negative) Influenza Type B (PCR) Negative PCR FLU B (Negative) RSV (PCR) Negative PCR RSV (Negative) Group A Strep DNA DETECTED A (Not Detectd) Discharge Plan Discharge Clinical Impression: Acute streptococcal pharyngitis, Urinary tract infection Patient Disposition: Home w/ Parent or Adult Condition: Stable Instructions: Strep Throat (DC) Additional Instructions: As we discussed, your swabs are positive for strep. They happen to be negative for influenza, RSV and COVID which is great. Your urinary test does show a bladder infection as well. Thankfully these can be treated with the same anti biotic. Your given a dose of Keflex here in the emergency department. He will technically be non contagious in 12 hours but 24 hours is safer. I have sent additional prescription to your pharmacy. He will continue taking his medication every 12 hours. Try to take your next dose early this afternoon, ideally between 1 and 230. Your 3rd dose can be taken at a more reasonable hour on Monday morning. Continue twice daily. Yeast infections can happen with any antibiotic. Use [id number] Monistat if these occur. For pain and body aches, I recommend Tylenol 1000 mg every 6 hours and or ibuprofen 600 mg every 6 hours. Continue to push fluids. Return to work Monday. No other restrictions in the meantime. If not improving after 3 days, primary care clinic follow-up or urgent care. Activity Level: Activity as Tolerated Discharge Diet: Regular Prescriptions: New cephalexin 500 mg capsule 500 mg PO BID 10 Days Qty: 20 0RF No Action nitrofurantoin monohyd/m-cryst 100 mg capsule 1 cap PO BID phenazopyridine [Pyridium] 100 mg tablet 100 mg PO TID PRN (Reason: pain) Qty: 15 0RF Follow Up/Referrals: Provider,Not a Local [Primary Care Provider] - Stand Alone Forms: [employer] Info Instructions
[2024-10-06 00:52] LABS: Appearance Urine Cloudy (Clear); Bilirubin Urine 1+ (Negative); Blood Urine Trace-intact (Negative); Color Urine Amber (Yellow); Glucose Urine Negative (Negative); Ketones Urine 3+ (Negative); Leukocyte Esterase Urine 2+ (Negative); Nitrite Urine Positive (Negative); Protein Urine 1+ (Negative); pH Urine 5.5 (5.0-8.5)
[2024-10-06 01:00] LABS: Amorphous Sediment Urine Few; Bacteria Urine Many; RBC Urine 0-2 (0-2); Squamous Epithelial Cell Urine Few (None-Few)
[2024-10-06 01:05] LABS: Strep A DNA Probe* DETECTED (Not Detectd)
[2024-10-06] MEDS: ACETAMINOPHEN 500 MG TABLET 1000 MG PO (01:20)
[2024-10-06] MEDS: ONDANSETRON ODT 4 MG TAB PO (01:20)
[2024-10-06 01:21] LABS: PCR FLU A Negative PCR FLU A (Negative); PCR FLU B Negative PCR FLU B (Negative); PCR RSV Negative PCR RSV (Negative); SARS PCR* Negative SARS-CoV-2 (Negative)
[2024-10-06] MEDS: cephALEXin 500 MG CAPSULE PO (01:43)
== END 2024-10-06 01:45 | disposition home or self-care (01) ==
PROVIDERS: Emergency Provider Family Medicine
DX: J02.0 Streptococcal pharyngitis (principal); N39.0 Urinary tract infection, site not specified
CPT/HCPCS: 81001; 87086; 87186; 87631; 87651; 99283; A9270

== ENCOUNTER 2025-02-21 21:42 | Emergency (ER) | payer OTHER, SELFPAY ==
[2025-02-21 21:44] VITALS: BP 118/79; PULSE 97; RESP 16; TEMP 35.9; O2SAT 97; BMI 29.3
--- NOTE | 2025-02-21 22:11 | ED_ITS ---
HPI - General Adult General Date Seen: 02/21/25 Chief complaint: Eye Problems Stated complaint: possible pink eye Time Seen by Provider: 02/21/25 21:44 History of Present Illness HPI narrative: Patient is a 24-year-old young woman here with mom for evaluation of her right eye. She says it started to bother her earlier, she does wear contact lenses, has monthly lenses and says she is pretty good about taking them out every night. She had her lenses in earlier today and was noticing some mattering some kind of greenish-yellow discharge by the time she got home and took her contact lens out the eye was red and irritated. She feels like her vision is a little bit blurry or than usual, she does not have photophobia. No trauma to the eye, no foreign body, no other complaints. Related Data Home Medications ?Medication ?Instructions ?Recorded ?Confirmed nitrofurantoin 1 cap PO BID 07/19/23 07/19/23 monohydrate/macrocrystals 100 mg capsule Previous Rx's ?Medication ?Instructions ?Recorded phenazopyridine 100 mg tablet 100 mg PO TID PRN pain #15 tabs 07/19/23 (Pyridium) cephalexin 500 mg capsule 500 mg PO BID 10 days #20 caps 10/06/24 Allergies Allergy/AdvReac Type Severity Reaction Status Date / Time melatonin AdvReac Mild Nausea/Vomi Verified 07/19/23 22:06 ting [facility] Medical History GERD (gastroesophageal reflux disease) ?K21.9 - Gastro-esophageal reflux disease without esophagitis (ICD-10) Urinary obstruction ?N13.9 - Obstructive and reflux uropathy, unspecified (ICD-10) Major depressive disorder, single episode, severe ?F32.2 - Major depressive disorder, single episode, severe without psychotic features (ICD-10) Reflux esophagitis ?K21.00 - Gastro-esophageal reflux disease with esophagitis, without bleeding (ICD-10) Surgical History History of ear surgery ?Z98.890 - Other specified postprocedural states (ICD-10) Social History Smoking Status: Never smoker Do you use any of these nicotine containing products: None and Vaping Products Second hand tobacco smoke exposure: No How often do you have a drink containing alcohol: monthly or less How many standard drinks containing alcohol do you have on a typical day: 1 or 2 How often do you have six or more drinks on one occasion: Never AUDIT-C Alcohol total score: 1 Non-prescribed substance use: denies use service: No Exam Narrative: Exam Narrative: Vital signs reviewed In general, alert, nontoxic young woman. Eyes: Sclera clear, injected on the right. No significant erythema or edema of the lid on the right. Extraocular movements are full. No obvious foreign body. ENT: No facial swelling or erythema, nares clear. Const: Vital Signs, click to edit/add: Vital Signs - 24 hr 02/21/25 21:44 Temperature 96.7 F L Pulse Rate [Left P ulse Oximeter] 97 Respiratory Rate 16 Blood Pressure [Ri ght Upper Arm] 118/79 Pulse Oximetry 97 Oxygen Delivery Me thod Room Air Course Course ED Course: I placed tetracaine drops and fluorescein, with a Wood lamp and magnification I do not see any obvious corneal abrasion or other corneal abnormalities. For now, recommend no contact lens use, tobramycin drops, if not improving over the next few days, follow up with eye dropper assembler. Return any time for worsening such as severe pain, vision changes, or severe photophobia. Vital Signs Vital signs: Initial Vital Signs Temperature 96.7 F L 02/21/25 21:44 Temperature Source Temporal Artery Scan 02/21/25 21:44 Pulse Rate 97 02/21/25 21:44 Pulse Rhythm Regular 02/21/25 21:44 Respiratory Rate 16 02/21/25 21:44 Blood Pressure 118/79 02/21/25 21:44 Blood Pressure Mean 92 02/21/25 21:44 Blood Pressure Position Sitting 02/21/25 21:44 Pulse Oximetry 97 02/21/25 21:44 Oxygen Delivery Method Room Air 02/21/25 21:44 Vital Signs Temperature 96.7 F L 02/21/25 21:44 Pulse Rate 97 02/21/25 21:44 Respiratory Rate 16 02/21/25 21:44 Blood Pressure 118/79 02/21/25 21:44 Pulse Oximetry 97 02/21/25 21:44 Oxygen Delivery Method Room Air 02/21/25 21:44 Temperature 96.7 F L 02/21/25 21:44 Pulse Rate 97 02/21/25 21:44 Respiratory Rate 16 02/21/25 21:44 Blood Pressure 118/79 02/21/25 21:44 Pulse Oximetry 97 02/21/25 21:44 Oxygen Delivery Method Room Air 02/21/25 21:44 Discharge Plan Discharge Clinical Impression: Conjunctivitis Patient Disposition: Home, Self-Care Condition: Stable Instructions: Conjunctivitis (ED) Additional Instructions: Tobramycin drops as prescribed. Do not use your contacts until your eyes completely better. Return for worsening symptoms such as severe pain, significant vision changes, light sensitivity etcetera. See your doctor if not improving over the next few days. Prescriptions: No Action nitrofurantoin monohyd/m-cryst 100 mg capsule 1 cap PO BID phenazopyridine [Pyridium] 100 mg tablet 100 mg PO TID PRN (Reason: pain) Qty: 15 0RF cephalexin 500 mg capsule 500 mg PO BID 10 Days Qty: 20 0RF Follow Up/Referrals: Provider,Not a Local [Primary Care Provider] - Stand Alone Forms: My[employer] Info Instructions
== END 2025-02-21 22:14 | disposition home or self-care (01) ==
LOC: ED 22:13
PROVIDERS: Emergency Provider Emergency Medicine; PCP Family Medicine
DX: H10.9 Unspecified conjunctivitis (principal)
CPT/HCPCS: 99283; A9270

== ENCOUNTER 2025-03-05 21:03 | Emergency (ER) | payer OTHER, SELFPAY ==
--- OUTSIDE RECORDS SUMMARY | 2025-03-05 21:06 | XMS_ITS | Encounter Summary ---
Author Organization [facility] Address [address] [place] [address] Care Team Providers Care Board Design Engineer Name Role Phone Akosua Hogan DO Primary Care Provider Jordyn Leiva NP Unavailable [phone] Encounter Details Date Type Department Care Team (Late st Contact Info) Description 10/06/[address] [id number] Dieter Angulo MD NO INFO AVAILABLE DS 10/09/03 (Primary Dx) Social History Tobacco Use Types Packs/Day Years Used Date Smoking Tobacco: Never Smokeless Tobacco: Never Comments:mom smokes outside Comments Unknown Sex and Gender Information Value Date Recorded Sex Assigned at Not on file Legal Sex Female 4:26 AM WARP TIER Gender Identity Not on file Sexual Orientation Not on file documented as of this encounter Progress Notes * 10/06/2004 11:59 PM CSTAddended by: ESVIN BLACKWELL on: 10/31/2003,12:59 PM Modules accepted: Order Summary, Progress Note s 16:00 Discharge Summary-[facility] MORENITA CHANEY) [Entered: 00:00 Transc ription([facility])] : 02 FINAL DISCHARGE DIAGNOSES: 1. Febrile seizure. 2. Rule-out sepsis. 3 . Bilateral otitis media. HOSPITAL COURSE: Gurvinder is a 27-ando[age]mdi female who was admitted through the ER for a febrile seizure. She was placed up on the Pediatric floor for observation and IV antib iotics. As far as workup - head CT of her head was normal, she had blood cultures, catheterized urin e, white blood cell count was 13.8, neutrophils were 64%, lymphocytes were 26%, platelet count was no rmal. All studies were essentially normal. The patient had fevers during the first two days during admission but has had no further fever since yesterday at 16:00. The patient is tolerating fluids and p.o. solids well and is alert, interactive, and acting normal per mom. PHYSICAL EXAMINATION ON DISC HARGE: Weight 9 kg. Physical examination is essentially within normal limits except bilateral otitis media. DISCHARGE PLANS: Discharge home. Follow-up with primary M.D. next week. DISCHARGE MEDICAT IONS: Cefzil 250/5 2.5 ml p.o. b.i.d. times 10 days. DIET AND ACTIVITY: As tolerated. [id number] L LEVY CHANEY MD MT: Document: [id number] [place], [place] Name: GURVINDER YOUNG Please refer to the Nursing Discharge Info rmation Sheet for more detailed information regarding diet, physical actvity limitations, medications and other pertinent instructions given to this patient upon discharge. DISCHARGE SUMMARY Page 2 of 1 NAUNN: PRUDENCE DSC: 10/09/2003 [place], [place] Name: MR#: : Admit Date: Discharge Date: GURVINDER YOUNG [id number] 2002 10/06/2003 10/09/2003 Doctor: MORENITA CHANEY MD Please refer to the Nursing Discharge Information Sheet for more detailed information reg arding diet, physical activity limitations, medications and other pertinent instructions given to thi s patient upon discharge. DISCHARGE SUMMARY Page 1 of 1 Electronically filed by Esvin maguire 10/31/2003 12:58 PM documented in this encounter Plan of Treatment Not on file documented as of this encounter Visit Diagnoses Diagnosis DS 10/09/03- Primary documented in this encounter Care Teams Board Design Engineer Relationship Specialty Start Date End Date Akosua Hogan DO PCP - General Family Practice 08/09/19 Jordyn Leiva NP [facility] [address] [place] [address] [id number] [place] [address] Assigned Behavioral Health Provider 07/31/20 04/20/21 documented as of this encounter
--- OUTSIDE RECORDS SUMMARY | 2025-03-05 21:06 | XMS_ITS | Clinical Summary ---
Author Organization [facility] Address [address] [place] [address] Care Team Providers Care Outpatient Physical Therapist Assistant Name Role Phone Akosua Hogan DO Primary Care Provider [phone] Allergies Active Allergy Reactions Criticality Noted Date Comments Pumpkin Seed Oil Hives 08/12/2019 Medications MONO-LINYAH 0.25-35 MG-MCG tablet 07/26/2019 Active buPROPion (WELLBUTRIN XL) 150 MG 24 hr tabletIndication s:Depression, unspecified depression type Take 1 tablet (150 mg) by mouth every morning 30 tablet 1 10/16/2019 Active Social History Tobacco Use Types Packs/Day Years Used Date Smoking Tobacco: Never Smokeless Tobacco: Never Comments:mom smokes outside PHQ-2 Answer Date Recorded PHQ-2 Score 3 09/18/2019 Comments Unknown Sex and Gender Information Value Date Recorded Sex Assigned at Not on file Legal Sex Female 4:26 AM SKEIN WASHER Gender Identity Not on file Sexual Orientation Not on file Last Filed Vital Signs Vital Sign Reading Time Taken Comments Blood Pressure 111/72 10/16/2019 11:34 AM SKEIN WASHER Pulse 91 10/16/2019 11:34 AM SKEIN WASHER Temperature - - Respiratory Rate - - Oxygen Saturation - - Inhaled Oxygen Concentration - - Weight 52.2 kg (115 lb) 10/16/2019 11:34 AM SKEIN WASHER Height 153.7 cm (5' 0.51) 10/16/2019 11:[address] Body Mass Index 22.08 10/16/2019 11:34 AM SKEIN WASHER Plan of Treatment Not on file Care Teams Outpatient Physical Therapist Assistant Relationship Specialty Start Date End Date Akosua Hogan DO PCP - General Family Practice 08/09/19
--- OUTSIDE RECORDS SUMMARY | 2025-03-05 21:06 | XMS_ITS | Clinical Summary ---
Author Organization [facility] Address [address] [place] [id number] Care Team Providers Care Restrooms Or Lounges Maid Name Role Phone Unavailable Primary Care Provider Unavailabl e Source Comments You are receiving this document as you are listed as the primary care provider,follow-up provider, or the patient has been referred to you for consultation.This is in compliance with the Medicare and[facility] EHR Incentive Program,which states Providers who transition their patient to another setting of careor provider of care or refers their patient to another provider of care shouldprovide summary care record for each transition of care or referral. [facility] Allergies No known active allergies Medications No known medications Active Problems No known active problems Social History Tobacco Use Types Packs/Day Years Used Date Smoking Tobacco: Never Smokeless Tobacco: Never Tobacco Cessation:Counseling Given: Not Answered Comments No Sex and Gender Information Value Date Recorded Sex Assigned at Not on file Legal Sex Female 9:30 AM CDT Gender Identity Not on file Sexual Orientation Not on file Last Filed Vital Signs Vital Sign Reading Time Taken Comments Blood Pressure 134/79 07/17/2023 9:44 AM CDT Pulse 97 07/17/2023 9:44 AM CDT Temperature 36.6 C (97.8 F) 07/17/2023 9:44 AM CDT Respiratory Rate 14 07/17/2023 9:44 AM CDT Oxygen Saturation 100% 07/17/2023 9:44 AM CDT Inhaled Oxygen Concentration - - Weight - - Height - - Body Mass Index - - Plan of Treatment Health Maintenance Due Date Last Done Comments Cervical Cancer Screening Due 2002 Hep C Screening (Preventive Services) 2002 MenB Immunization Discussion 2002 HIV Screening (Preventive Services) 2018 Adult Preventive Visit 2020 HepB Vaccine (1) 2021 Chlamydia 10/06/2023 10/06/2022 COVID-19 Vaccine (4 - season) 2024 07/24/2022, 07/08/2021, 06/17/2021 DTaP/Tdap/Td Vaccine (7 - Tdap) 06/08/2025 06/08/2015, 04/29/2008, 07/24/2006, Additional history exists Influenza Vaccine (Season Ended) 2025 08/29/2017, 08/05/2004 Zoster/Shingles Vaccine (1 of 2) 2052 Hib Vaccine Completed 08/14/2003, 12/08, 2002, Additional history exists Pneumococcal Vaccine Aged Out 12/19/2003, 03/11/2003, 01/01/2003, Additional history exists No longer eligible based on patient's age to complete this topic IPV (Polio) Vaccine Completed 04/29/2008, 08/14/2003, 01/01/2003, Additional history exists MCV4 Vaccine Aged Out 06/08/2015 No longer eligi ble based on patient's age to complete this topic HPV Vaccine Completed 06/13/2023, 11/2022, 10/06/2022 HepA Vaccine Aged Out No longer eligi ble based on patient's age to complete this topic [place] [address] [place] [address]
--- OUTSIDE RECORDS SUMMARY | 2025-03-05 21:06 | XMS_ITS | Clinical Summary ---
Author Organization [employer] Address [address] [place] [address] Care Team Providers Care Customer Service Manager Name Role Phone [facility] Primary Care Provider Unavailabl e Allergies Active Allergy Reactions Criticality Noted Date Comments Melatonin Nausea And Vomiting 10/06/2022 Unlisted Allergen (Include Detail In Comments) Hives,Edema 02/20/2018 Horse flies Pumpkin Hives 02/13/2018 Medications cephalexin 500 mg capsuleIndication s:UTI (urinary tract infection), uncomplicated Take 1 Capsule (500 mg) by mouth two times daily for 7 days. 14 Capsule 5 03/07/20 25 Active norgestimate-ethi nyl estradiol, 0.25-35 mg-mcg, (Sprintec) 0.25-35 mg-mcg tabletIndications :Dysmenorrhea Take 1 Tablet by mouth once daily. 84 Tablet 3 4 02/26/20 25 Discontinu ed(*Patien t states no longer taking) sertraline (ZOLOFT) 50 mg tabletIndications :Generalized anxiety disorder,Major depressive disorder, recurrent, moderate (HC) Take 1 Tablet (50 mg) by mouth every morning. 30 Tablet 4 02/26/20 25 Discontinu ed(*Patien t states no longer taking) fluconazole (DIFLUCAN) 150 mg tabletIndications :Yeast vaginitis Take 1 tablet by mouth once. May repeat in 3 days if needed. 2 Tablet 4 05/20/20 25 Discontinu ed(*Patien t states no longer taking) Active Problems Problem Noted Date Diagnosed Date Pap smear for cervical cancer screening 11/16/19 24 Overview (11/16/2023): 10/2023 NIL Plan: PAP due 10/2026 Suicidal ideation 02/14/2018 Major depressive disorder, s savannah episode, severe without psychotic features 02/14/2018 Parent-child relational problem 02/14/2018 Overview (02/14/2018): Pt wants to move back to her mother's home, reports that her father drinks daily in the evenings URINARY OBSTRUCTION 06/01/2005 GERD Resolved Problems Problem Noted Date Diagnosed Date Resolved Date Adjustment disorder with mix ed anxiety and depressed mood 04/23/2007 02/14/2018 Overview (04/23/2007): Stressor: Visits with birthfather OTITIS MEDIA 12/26/2003 01/09/2004 Encounters Date Type Department Care Team Description 02/25/2025 10:40 AM CDT [place] [facility] [address] [place] [address] Justo Eaton MD Menstrual Problem (Spotty, clotting) 02/25/2025 Travel from Last 3 Months Immunizations Immunization Administration Dates Next Due COVID-19 vaccine (VoiceObjects-Bio NTech 30mcg/0.3mL) 12YO+ BIVALENT PF, MDV 07/24/2022 COVID-19 vaccine (Voice[employer] NTech 30mcg/0.3mL) PF, MDV 07/08/2021,06/17/2021 DTaP 04/29/2008, 6,12/19/2003,03/11,01/01/2003,2002 HIB PRP-OMP (PedvaxHIB) 2002 HIB-HepB (Comvax) 08/14/2003,01/01/2003,10/03/20 02 HPV 9 (Gardasil 9) 06/13/2023,12/08/2022, 022 Hepatitis B (Peds) 07/24/2006 Inactivated Polio Vaccine 04/29/2008,03/2003,01/01/2003,10/03 Influenza, IIV3 (Age >=3 years) 08/05/2004 Influenza, IIV4 08/29/2017 MMR 04/29/2008,07/24/2006,12/19/2003 Meningococcal Vaccine (Menactra) 06/08/2015 Pneumococcal Poly,23-Valent (Pneumovax) 12/19/2003 Pneumococcal conj 7-Valent (Prevnar 7) 3,01/01/2003,2002 Tdap 06/08/2015 Varicella Vaccine 04/29/2008,08/14/2003 Family History Medical History Relation Name Comments Genetic Other no history of a nethesia Relation Name Status Comments Other Social History Tobacco Use Types Packs/Day Years Used Date Smoking Tobacco: Never Smokeless Tobacco: Never Tobacco Cessation:Counseling Given: Not Answered Comments:non smoking home Alcohol Use Standard Drinks/Week Comments Yes 0 (1 standard drink = 0.6 oz pur e alcohol) social, spec occas PHQ-2 Answer Date Recorded PHQ-2 TOTAL SCORE 2 11/08/2023 Social Connections Answer Date Recorded Do you often feel lonely or isolated from those around you? 4 10/27/2023 Financial Resource Strain Answer Date R ecorded Difficulty of Paying Living Expenses 3 10/27/2023 Difficulty of Paying Living Expenses Not on file 10/27/2023 Food Insecurity Answer Date Recorded Do you worry your food will run out before you are able to buy more? 2 10/27/2023 Transportation Needs Answer Date Record ed Does lack of transportation keep you from medica l appointments? 1 10/27/2023 Does lack of transportation keep you from work, meetings or getting things that you need? 1 10/27/2023 Housing Stability Answer Date Recorded What is your housing situation today? 1 10/27/2023 Utilities Answer Date Recorded Do you have trouble paying f or utilities (for example, heat, electricity, water, phone)? 1 10/27/2023 Comments No Sex and Gender Information Value Date Recorded Sex Assigned at Not on file Legal Sex Female 5:24 AM CAR REPAIR SUPERVISOR Gender Identity Not on file Sexual Orientation Not on file Obstetrics History Last Filed Vital Signs Vital Sign Reading Time Taken Comments Blood Pressure 100/76 02/25/2025 10:39 AM CDT Pulse 110 02/25/2025 10:39 AM CDT Temperature 36.8 C (98.3 F) 05/25/2022 8:41 PM CDT Respiratory Rate 16 03/29/2021 2:08 PM CDT Oxygen Saturation 97% 11/08/2023 9:10 AM CAR REPAIR SUPERVISOR Inhaled Oxygen Concentration - - Weight 69.9 kg (154 lb) 02/25/2025 10:39 AM CDT Height 154.5 cm (5' 0.83) 02/25/2025 10:39 AM C DT Body Mass Index 29.26 02/25/2025 10:39 AM CDT Plan of Treatment Health Maintenance Due Date Last Done Comments COVID-19 vaccine series ( season) 2024 07/24/2022, 07/08/2021, 06/17/2021 Depression screening for age 12+ 11/08/2024 11/08/2023, 11/18/2022, 10/09/2022, Additional history exists Tetanus booster 06/08/2025 06/08/2015 Influenza Vaccine (Season Ended) 2025 08/29/2017, 08/05/2004 BMI (ht and wt on same day) for age 18+ 02/25/2026 02/25/2025, 11/08/2023, 10/27/2023, Additional history exists Chlamydia for age 16-24 02/25/2026 02/26/20, 11/03/2023, 10/27/2023, Additional history exists Pap test for age 21-65 11/08/2026 11/08/2023 Pneumococcal series for age 6-49 Aged Out 12/19/2003, 03/11/2003, 01/01/2003, Additional history exists No longer eligible based on patient's age to complete this topic Hepatitis B series for 19+ Completed 07/24, 08/14/2003, 01/01/2003, Additional history exists Tdap Completed 06/08/2015 HPV series for age 9-26 Completed 06/13/20 23, 12/08/2022, 10/06/2022 HIV for age 15-65 Completed 10/27/2023 Hepatitis C screening for age 18-79 Completed 10/27/2023 Procedures Procedure Name Priority Date/Time Associated Diagnosis Comments GC CHLAMYDIA TRACH PROBE Routine 02/25/2025 11:29 AM CDT Screening for chlamydial disease URINALYSIS MICROSCOPIC Routine 02/25/2025 11:29 AM CDT Abnormal uterine bleeding (AUB) URINALYSIS MACROSCOPIC - [facility] ONLY POC DIP ([facility]) Routine 02/25/2025 11:27 AM CDT Abnormal uterine bleeding (AUB) URINE Routine 02/25/2025 11:11 AM CDT Abnormal uterine bleeding (AUB) CBC WITH AUTO DIFFERENTIAL Routine 02/25/2025 11:11 AM CDT Abnormal uterine bleeding (AUB) TSH WITH REFLEX Routine 02/25/2025 11:11 AM CDT Abnormal uterine bleeding (AUB) COMP METABOLIC PANEL Routine 02/25/2025 11:11 AM CDT Abnormal uterine bleeding (AUB) BRANCH EXAMINER THIN PREP PAP SCREEN IMAGED Routine 11/08/2023 9:35 AM CAR REPAIR SUPERVISOR Screening for cervical cancer ANTI HIV 1/2 Routine 10/27/2023 11:04 AM CAR REPAIR SUPERVISOR Screen for STD (sexually transmitted disease) ANTI HCV Routine 10/27/2023 11:04 AM CAR REPAIR SUPERVISOR Screen for STD (sexually transmitted disease) from Last 3 Months or Most Recently Relevant to Health Maintenance Results * (ABNORMAL) URINALYSIS MICROSCOPIC [65751.1] - routine (02/25/2025 11:29 AM CDT) RBC 26-50(A) 0-2, None Seen /HPF 02/25/2025 3:45 PM CDT [facility] WBC 51-100(A) 0-2, 3-5, None Seen /HPF 02/25/2025 3:45 PM CDT [facility] BACTERIA Many(A) None Seen, Rare, Few Bacteria/ HPF 02/25/2025 3:45 PM CDT [facility] EPITHELIAL CELLS None Seen None Seen, Few Epi/HPF 02/25/2025 3:45 PM CDT [facility] HYALINE CASTS 0-2 0-2, 3-5 /LPF 02/25/2025 3:45 PM CDT [facility] Urine URINE SPECIMEN / Unknown Non-Blood / Unknown 02/25/2025 11:29 AM CDT 02/25/2025 11:29 AM CDT Justo Eaton MD URINE Final Result [facility] [address] [place] [address], [place] * GC CHLAMYDIA TRACH PROBE [[id number]] (02/25/2025 11:29 AM CDT) CHLAMYDIA PROBE Negative 8:18 PM CDT [facility] N GONORRHOEAE PROBE Negative 02/25/2025 8:18 PM CDT [facility] Other URINE SPECIMEN / Unknown Non-Blood / Unknown 02/25/2025 11:29 AM CDT 02/25/2025 11:29 AM CDT us Justo Eaton MD MICROBIOLOGY Final Result [facility] [address] [place] [address], [place] * (ABNORMAL) POCT Urinalysis Dipstick Only [[id number]] (02/25/2025 11:27 AM CDT) PH 7.0 5.0 - 8.0 SPECIFIC GRAVITY 1.025 1.001 - 1.035 GLUCOSE NEGATIVE NEGATIVE BILIRUBIN NEGATIVE NEGATIVE KETONES NEGATIVE NEGATIVE OCCULT BLOOD 2+(A) NEGATIVE PROTEIN NEGATIVE NEGATIVE NITRITE POSITIVE(A) NEGATIVE LEUKOCYTE ESTERASE 1+(A) NEGATIVE Urine URINE SPECIMEN / Unknown 02/25/2025 11:27 AM CDT 02/25/2025 11:28 AM CDT us Justo Eaton MD URINE Final Result Performing Organization Address City/[facility]/ZIP Co de Phone Number [facility] [address] [place] [address], [place] [phone], [place] [address] * TSH WITH REFLEX (02/25/2025 11:11 AM CDT) TSH W/REFLEX TO FT4 1.74 mIU/L [facility] Comment: Reference Range > or = 20 Years 0.40-4.50 Ranges First trimester 0.26-2.66 Second trimester 0.55-2.73 Third trimester 0.43-2.91 Blood BLOOD SPECIMEN / Unknown 02/25/2025 11:11 AM CDT 02/25/2025 11:18 AM CDT us Justo Eaton MD CHEMISTRY Final Result [facility] [address] [facility] [place] [address], [place] [phone] [facility] [address] [place] [address] * (ABNORMAL) CBC AND DIFFERENTIAL (02/25/2025 11:11 AM CDT) WHITE BLOOD CELL COUNT 9.8 3.8 - 10.8 Thousand/u L [facility] RED BLOOD CELL COUNT 4.79 3.80 - 5.10 Million/uL [facility] HEMOGLOBIN 13.8 11.7 - 15.5 g/dL [facility] HEMATOCRIT 41.5 35.0 - 45.0 % [facility] MCV 86.6 80.0 - 100.0 fL [facility] MCH 28.8 27.0 - 33.0 pg [facility] MCHC 33.3 32.0 - 36.0 g/dL [facility] Comment: For adults, a slight decrease in the calculated MCHC value (in the range of 30 to 32 g/dL) is most likely not clinically significant; however, it should be interpreted with caution in correlation with other red cell parameters and the patient's clinical condition. RDW 12.7 11.0 - 15.0 % [facility] PLATELET COUNT 336 140 - 400 Thousand/u L [facility] MPV 10.7 7.5 - 12.5 fL [facility] ABSOLUTE NEUTROPHILS 6,546 1,500 - 7,800 cells/uL [facility] ABSOLUTE LYMPHOCYTES 1,784 850 - 3,900 cells/uL [facility] ABSOLUTE MONOCYTES 990(H) 200 - 950 cells/uL [facility] ABSOLUTE EOSINOPHILS 431 15 - 500 cells/uL [facility] ABSOLUTE BASOPHILS 49 0 - 200 cells/uL [facility] NEUTROPHILS 66.8 % [facility] LYMPHOCYTES 18.2 % [facility] MONOCYTES 10.1 % [facility] EOSINOPHILS 4.4 % [facility] BASOPHILS 0.5 % [facility] Blood BLOOD SPECIMEN / Unknown 02/25/2025 11:11 AM CDT 02/25/2025 11:18 AM CDT us Justo Eaton MD HEMATOLOGY Final Result [facility] [employer] [facility] [address] [place] [address], [facility] [address] [place] [address] * URINE (02/25/2025 11:11 AM CDT) Pathologist [facility] HCG, QL, URINE NEGATIVE NEGATIVE [facility] Urine URINE SPECIMEN / Unknown 02/25/2025 11:11 AM CDT 02/25/2025 11:18 AM CDT us Justo Eaton MD URINE Final Result [facility] [address] [place] [address], [facility] [address] [place] [address] * COMP METABOLIC PANEL (02/25/2025 11:11 AM CDT) [facility] GLUCOSE 87 65 - 99 mg/dL [facility] Comment: Fasting reference interval UREA NITROGEN (BUN) 10 7 - 25 mg/dL [facility] CREATININE 0.70 0.50 - 0.96 mg/dL [facility] EGFR 125 > OR = 60 mL/min/1. 73m2 [facility] BUN/CREATININE RATIO SEE NOTE: 6 - 22 (calc) [facility] Comment: Not Reported: BUN and Creatinine are within reference range. SODIUM 140 135 - 146 mmol/L [facility] POTASSIUM 4.2 3.5 - 5.3 mmol/L [facility] CHLORIDE 106 98 - 110 mmol/L [facility] CARBON DIOXIDE 26 20 - 32 mmol/L [facility] CALCIUM 9.3 8.6 - 10.2 mg/dL [facility] PROTEIN, TOTAL 7.2 6.1 - 8.1 g/dL [facility] ALBUMIN 4.3 3.6 - 5.1 g/dL [facility] GLOBULIN 2.9 1.9 - 3.7 g/dL (calc) [facility] ALBUMIN/GLOBULIN RATIO 1.5 1.0 - 2.5 (calc) [facility] BILIRUBIN, TOTAL 0.3 0.2 - 1.2 mg/dL [facility] ALKALINE PHOSPHATASE 93 31 - 125 U/L [facility] AST 19 10 - 30 U/L [facility] ALT 17 6 - 29 U/L [facility] Blood BLOOD SPECIMEN / Unknown 02/25/2025 11:11 AM CDT 02/25/2025 11:18 AM CDT us Justo Eaton MD CHEMISTRY Final Result [facility] [address] [place] [address], [facility] [address] [place] [address] * BRANCH EXAMINER THIN PREP PAP SCREEN IMAGED [[id number]] (11/08/2023 9:35 AM CAR REPAIR SUPERVISOR) Case Report Gynecologic Cytology Report Case: [id number] Authorizing Provider: Denice Up DO Collected: 11/08/2023 0935 Ordering Location: [facility] Received: 11/08/[address] [place] [address] First Screen: Sita Pena Specimen: BRANCH EXAMINER ThinPrep Vial Screening, Cervical 11/16/2023 3:06 PM CAR REPAIR SUPERVISOR [facility] INTERPRETATION/ RESULT NEGATIVE FOR INTRAEPITHELIAL LESION OR MALIGNANCY (NIL) (none) 11/16/2023 3:06 PM CAR REPAIR SUPERVISOR [facility] [employer]OR[facility]-C ENTRAL LABORATORY at 1506 CAR REPAIR SUPERVISOR SPECIMEN ADEQUACY Satisfactory for evaluation Endocervical component present 11/16/2023 3:06 PM CAR REPAIR SUPERVISOR [facility]AL LABORAT[facility] Date of LMP 10/12/2023 11/16/2023 3:06 PM CAR REPAIR SUPERVISOR [facility] Last Pap Date NA 11/16/2023 3:06 PM CAR REPAIR SUPERVISOR [facility] Last Pap Result First Pap/Unknown 3:06 PM CAR REPAIR SUPERVISOR [facility] Abnormal Pap or [place] Bx in last 5 years No 11/16/2023 3:06 PM CAR REPAIR SUPERVISOR [facility] Menstrual Status Regular Periods 11/16/2023 3:06 PM CAR REPAIR SUPERVISOR [facility] [place] Bx Done Today No 11/16/2023 3:06 PM CAR REPAIR SUPERVISOR [facility] Additional Information None given 11/16/2023 3:06 PM CAR REPAIR SUPERVISOR [facility] Comment: Cytology is screened at [facility] - [address], [place] [address] and [facility] - [address], [place] [address] and [facility] - [address] [place] [address] [facility] - [address], [place] [address] Automated Review Successful 11/16/2023 3:06 PM CAR REPAIR SUPERVISOR [facility] Comment:Specimen processed s uccessfully by automated parking station attendant device, ThinPrep Imaging System, [employer] Note The pap test is a screening technique, not a diagnostic procedure. It is used primarily to screen for squamous cancers and precursor lesions. Published studies have shown that it is subject to both false negative and false positive results. The pap test should not be used as the sole means to diagnose or exclude pre-malignant and malignant lesions. 11/16/2023 3:06 PM CAR REPAIR SUPERVISOR [facility] Other (Cervical) Non-Blood / Unknown 11/08/2023 9:35 AM CAR REPAIR SUPERVISOR 11/08/2023 10:07 AM CAR REPAIR SUPERVISOR us Denice Up DO PATHOLOGY/CYTOLOGY Final Re sult [facility] [address] [place] [address], [place] * ANTI HCV (10/27/2023 11:04 AM CAR REPAIR SUPERVISOR) HEPATITIS C ANTIBODY Non-Reacti ve Non-React tracy 10/27/2023 6:34 PM CAR REPAIR SUPERVISOR [facility] Comment:Please note, per www .CDC.gov: If a patient is known to be at high risk of HCV infection, or is symptomatic, and the physician's suspicion of HCV infection is high, HCV RNA testing is often employed and is of diagnostic value, even after an initial negative anti-HCV test result. Blood BLOOD SPECIMEN / Unknown Venipuncture / Unknown 10/27/2023 11:04 AM CAR REPAIR SUPERVISOR 10/27/2023 11:04 AM CAR REPAIR SUPERVISOR us Justo Eaton MD SEND OUTS Final Result Performing Organization Address [facility] Co de Phone Number [facility] [address] [place] [address], [place] * ANTI HIV 1/2 (10/27/2023 11:04 AM CAR REPAIR SUPERVISOR) HIV-1/HIV-2 SCREEN Non-Reacti ve Non-Reacti ve 10/27/2023 6:31 PM CAR REPAIR SUPERVISOR [facility] Comment:HIV-1 p24 and HIV-1/ HIV-2 Ab Not Detected. Blood BLOOD SPECIMEN / Unknown Venipuncture / Unknown 10/27/2023 11:04 AM CAR REPAIR SUPERVISOR 10/27/2023 11:04 AM CAR REPAIR SUPERVISOR us Justo Eaton MD SEND OUTS Final Result Performing Organization Address City/[facility]/ZIP Co de Phone Number [facility] [address] [place] [address], [place] from Last 3 Months or Most Recently Relevant to Health Maintenance Advance Directives * Full Code (Latest Code Status on File) Date Activated Date Inactivated Comments 02/13/2018 5:53 PM 02/19/2018 7:52 PM Care Teams Customer Service Manager Relationship Specialty Start Date End Date [facility] PCP - General 01/15/18
[2025-03-05 21:11] VITALS: BP 147/87; PULSE 112; RESP 20; TEMP 37.1; O2SAT 100; BMI 30.5
--- NOTE | 2025-03-05 21:30 | ED.GENADULT ---
HPI - General Adult General Chief complaint: Vaginal Bleeding Stated complaint: Vaginal bleeding Time Seen by Provider: 03/05/25 21:22 History of Present Illness HPI narrative: Arrives with complaints of vaginal bleeding with clots for the past 26 days. Reports that today she became dizzy and nauseated. Is also currently being treated for UTI. Alert and oriented, ABCs intact. 24-year-old woman presenting to the emergency department with concern of vaginal bleeding. Demonstrates up to [employer] ball size clots. Was feeling bad at work today with some nausea and maybe some lightheadedness. Works as an aide on a short bus. She does not take contraceptives as they ?make me psychotic? have to find hormonal alternatives but does not use any contraception currently it appears. Usually pretty regular. The duration normal for this last period but was a little spotty. This bleeding has been thinner than usual not as thick as her usual menses she says. No significant abdominal pain. Related Data Home Medications ?Medication ?Instructions ?Recorded ?Confirmed nitrofurantoin 1 cap PO BID 07/19/23 03/05/25 monohydrate/macrocrystals 100 mg capsule Previous Rx's ?Medication ?Instructions ?Recorded phenazopyridine 100 mg tablet 100 mg PO TID PRN pain #15 tabs 07/19/23 (Pyridium) cephalexin 500 mg capsule 500 mg PO BID 10 days #20 caps 10/06/24 tranexamic acid 650 mg tablet 1,300 mg (2 x 650 mg) PO Q8H 5 03/06/25 days #30 tabs Allergies Allergy/AdvReac Type Severity Reaction Status Date / Time melatonin AdvReac Mild Nausea/Vomi Verified 07/19/23 22:06 ting Review of Systems Status of ROS: Reports: 6 or more systems reviewed and unremarkable except as noted in History and below [facility] Medical History GERD (gastroesophageal reflux disease) ?K21.9 - Gastro-esophageal reflux disease without esophagitis (ICD-10) Urinary obstruction ?N13.9 - Obstructive and reflux uropathy, unspecified (ICD-10) Major depressive disorder, single episode, severe ?F32.2 - Major depressive disorder, single episode, severe without psychotic features (ICD-10) Reflux esophagitis ?K21.00 - Gastro-esophageal reflux disease with esophagitis, without bleeding (ICD-10) Surgical History History of ear surgery ?Z98.890 - Other specified postprocedural states (ICD-10) Social History Smoking Status: Never smoker Do you use any of these nicotine containing products: None and Vaping Products Second hand tobacco smoke exposure: No How often do you have a drink containing alcohol: monthly or less How many standard drinks containing alcohol do you have on a typical day: 1 or 2 How often do you have six or more drinks on one occasion: Never AUDIT-C Alcohol total score: 1 Non-prescribed substance use: denies use service: No Exam Narrative: Exam Narrative: Pleasant. NAD. Skin is warm and dry. Breathing easily. Heart rate is little elevated in a regular rhythm. Abdomen is soft and nontender. Extremities are well perfused. Mucous membranes are normally pink. Const: Vital Signs, click to edit/add: Vital Signs - 24 hr 03/05/25 21:11 Temperature 98.8 F Pulse Rate [Pulse Oximeter] 112 H Respiratory Rate 20 Blood Pressure [Ri ght Upper Arm] 147/87 H Pulse Oximetry 100 Oxygen Delivery Me thod Room Air Documenting provider has reviewed patient's vital signs: yes Course Vital Signs Vital signs: Initial Vital Signs Temperature 98.8 F 03/05/25 21:11 Temperature Source Temporal Artery Scan 03/05/25 21:11 Pulse Rate 112 H 03/05/25 21:11 Respiratory Rate 20 03/05/25 21:11 Blood Pressure 147/87 H 03/05/25 21:11 Blood Pressure Mean 107 H 03/05/25 21:11 Pulse Oximetry 100 03/05/25 21:11 Oxygen Delivery Method Room Air 03/05/25 21:11 Vital Signs Temperature 98.8 F 03/05/25 21:11 Pulse Rate 112 H 03/05/25 21:11 Respiratory Rate 20 03/05/25 21:11 Blood Pressure 147/87 H 03/05/25 21:11 Pulse Oximetry 100 03/05/25 21:11 Oxygen Delivery Method Room Air 03/05/25 21:11 Temperature 98.8 F 03/05/25 21:11 Pulse Rate 112 H 03/05/25 21:11 Respiratory Rate 20 03/05/25 21:11 Blood Pressure 147/87 H 03/05/25 21:11 Pulse Oximetry 100 03/05/25 21:11 Oxygen Delivery Method Room Air 03/05/25 21:11 Medications Administered Medications: Discontinued Medications Generic Name Dose Route Start Last Admin Trade Name Naifq PRN Reason Stop Dose Admin Sodium Chloride 1,000 mls @ 1,000 mls/hr 03/05/25 21:39 03/05/25 23:11 0.9 % Sodium Chloride 1000 Ml IV 03/05/25 22:38 Infused .Q1H ONE Infusion Tranexamic Acid 1,000 mg/ 110 mls @ 440 mls/hr 03/05/25 23:37 03/06/25 00:37 Sodium Chloride IVPB 03/05/25 23:38 Not Given ONCE ONE Medical Decision Making MDM Narrative Medical decision making narrative: Appears to be experiencing menorrhagia. Will need to verify whether not is . Check hemoglobin as describing being symptomatic. I would normally anticipate brief course of progestin or similar to ?reset?. Unfortunately notes that hormonal contraception tends to be rather difficult, complicated emotionally using the word ?psychotic?. IV hydration. Did discuss this case with OBGYN on-call. Recommendations are for TXA following ultrasound. Discussed findings of ultrasound with license examiner. Hemoglobin looks good. White count little bit elevated though this might be partly related to menses. Maybe some other illness going on but I do not think requires further investigation at this time. Vitally well during time in the emergency department. Radiology over-read below INDICATION: Menorrhagia. COMPARISON: None. TECHNIQUE: Ultrasound pelvis transabdominal and transvaginal for better assessment or to better visualize the endometrium. Real-time grayscale imaging and color Doppler analysis. FINDINGS: Sonographic images demonstrate a normal size and smooth outer contour of the uterus. The uterus is anteverted in position. The uterus measures 7.8 cm in length by 2.9 cm in AP dimension by 3.6 cm in transverse dimension. The myometrium has uniform echotexture. Nabothian cysts in the cervix. The endometrial lining measures 7 mm in composite thickness. No sign of endometrial mass, fluid, or abnormal blood flow. The right ovary measures 2.4 x 1.6 x 1.4 cm and the left ovary measures 5.2 x 2.8 x 4.2 cm. The right ovary appears normal. There is a 3.9 x 2.8 x 4.3 cm anechoic cyst in the left ovary with no internal vascularity. No free fluid in the pelvic cul-de-sac. IMPRESSION: 1. Endometrial stripe is within normal limits. No findings to explain menorrhagia. 2. Simple appearing 4.3 cm left ovarian cyst. This is likely physiologic and does not require follow-up. Dictated by Myrtle Acuna MD @ 03/06/2025 12:21:11 AM See patient discharge plan for further discussion [facility] so that they can help you sort out this bleeding problem. In the meantime they/we are recommending you take this TXA to help slow or stop the bleeding. Return sooner/be seen for marked increase in bleeding such that you are soaking 1 overnight pad an hour for 2 consecutive hours, marked increase in persistent abdominal pain, fever. Medical Records Medical records reviewed: Yes I reviewed the patient's medical records Lab Data Lab results reviewed: Yes I reviewed the patient's lab results Labs: Lab Results 03/05/25 03/05/25 Range/Units 21:39 21:54 WBC 12.29 H (4.50-11.00) K/uL RBC 4.38 (4.00-5.20) m/uL Hgb 12.7 (12.0-16.0) gm/dL Hct 37.4 (33.0-51.0) % MCV 85 (80-100) fL MCH 29 (26-34) pg MCHC 34 (32-36) gm/dL RDW Coeff of Hao 12.4 (11.5-15.5) % Plt Count 331 (140-440) K/uL Neut % (Auto) 69.5 (42.0-72.0) % Lymph % (Auto) 17.0 L (20-44) % Cascade % (Auto) 8.6 (0.0-11.0) % Eos % (Auto) 4.3 (0.0-7.0) % Baso % (Auto) 0.4 (0.0-3.0) % Neut # (Auto) 8.50 H (1.7-7.0) K/uL Lymph # (Auto) 2.10 (0.90-2.90) K/uL Cascade # (Auto) 1.10 H (0.00-0.90) K/UL Eos # (Auto) 0.50 (0.00-0.50) K/uL Baso # (Auto) 0.00 (0.00-0.30) K/uL Abs Immat Gran (auto) 0.00 (0.00-0.30) K/uL Imm/Tot Granulo (auto) 0.2 % Urine Color Yellow (Yellow) Urine Appearance Slightly Cloudy A (Clear) Urine pH 6.5 (5.0-8.5) Ur Specific [place] 1.010 (1.000-1.030) Urine Protein Negative (Negative) Urine Glucose (UA) Negative (Negative) Urine Ketones Negative (Negative) Urine Blood 3+ A (Negative) Urine Nitrite Negative (Negative) Urine Bilirubin Negative (Negative) Urine Urobilinogen 0.2 (0.2-1.0) Ur Leukocyte Esterase Trace A (Negative) Urine RBC 10-25 A (0-2) Urine WBC 2-5 (0-5) Ur Squamous Epith Cells Moderate A (None-Few) Urine Bacteria Few A (None) Urine HCG, Qual Negative (Negative) Discharge Plan Discharge Clinical Impression: Menorrhagia, Ovarian cyst Patient Disposition: Home, Self-Care Condition: Improved Additional Instructions: [facility] so that they can help you sort out this bleeding problem. In the meantime they/we are recommending you take this TXA to help slow or stop the bleeding. Return sooner/be seen for marked increase in bleeding such that you are soaking 1 overnight pad an hour for 2 consecutive hours, marked increase in persistent abdominal pain, fever. Activity Level: No Restrictions Discharge Diet: Regular Prescriptions: New tranexamic acid 650 mg tablet 1,300 mg PO Q8H 5 Days Qty: 30 0RF No Action nitrofurantoin monohyd/m-cryst 100 mg capsule 1 cap PO BID phenazopyridine [Pyridium] 100 mg tablet 100 mg PO TID PRN (Reason: pain) Qty: 15 0RF cephalexin 500 mg capsule 500 mg PO BID 10 Days Qty: 20 0RF Follow Up/Referrals: Justo Eaton MD [Primary Care Provider, [facility]] Stand Alone Forms: [email or web address] Info Instructions
[2025-03-05 21:57] LABS: Ur HCG Qualitative* Negative (Negative)
[2025-03-05 22:11] LABS: Basophils Percent Auto 0.4 % (0.0-3.0); Eosinophils Percent Auto 4.3 % (0.0-7.0); Hematocrit 37.4 % (33.0-51.0); Hemoglobin* 12.7 gm/dL (12.0-16.0); Immature Granulocytes Pct Auto 0.2 %; Mean Corpuscular HGB Conc 34 gm/dL (32-36); Mean Corpuscular Hemoglobin 29 pg (26-34); Mean Corpuscular Volume 85 fL (80-100); Monocytes Percent Auto 8.6 % (0.0-11.0); Neutrophils Percent Auto 69.5 % (42.0-72.0); Platelet Count* 331 K/uL (140-440); RDW Coefficient of Variation % 12.4 % (11.5-15.5); Red Blood Count 4.38 m/uL (4.00-5.20); White Blood Count* 12.29 K/uL (4.50-11.00)
[2025-03-05 22:15] LABS: Slide Review Reflex No
[2025-03-05] MEDS: 0.9 % SODIUM CHLORIDE 1000 ml 1,000 ML IV (22:20)
--- NOTE | 2025-03-05 23:01 | CRLHL7_ITS ---
For Patients: As a result of the Century Cures Act, medical imaging exams and procedure reports are released immediately into your electronic medical record. You may view this report before your referring provider. If you have questions, please contact your health care provider. INDICATION: Menorrhagia. COMPARISON: None. TECHNIQUE: Ultrasound pelvis transabdominal and transvaginal for better assessment or to better visualize the endometrium. Real-time grayscale imaging and color Doppler analysis. FINDINGS: Sonographic images demonstrate a normal size and smooth outer contour of the uterus. The uterus is anteverted in position. The uterus measures 7.8 cm in length by 2.9 cm in AP dimension by 3.6 cm in transverse dimension. The myometrium has uniform echotexture. Nabothian cysts in the cervix. The endometrial lining measures 7 mm in composite thickness. No sign of endometrial mass, fluid, or abnormal blood flow. The right ovary measures 2.4 x 1.6 x 1.4 cm and the left ovary measures 5.2 x 2.8 x 4.2 cm. The right ovary appears normal. There is a 3.9 x 2.8 x 4.3 cm anechoic cyst in the left ovary with no internal vascularity. No free fluid in the pelvic cul-de-sac. IMPRESSION: 1. Endometrial stripe is within normal limits. No findings to explain menorrhagia. 2. Simple appearing 4.3 cm left ovarian cyst. This is likely physiologic and does not require follow-up. Dictated by Myrtle Acuna MD @ 03/06/2025 12:21:11 AM (Electronically Signed)
[2025-03-05 23:12] LABS: Appearance Urine Slightly Cloudy (Clear); Bilirubin Urine Negative (Negative); Blood Urine 3+ (Negative); Color Urine Yellow (Yellow); Glucose Urine Negative (Negative); Ketones Urine Negative (Negative); Leukocyte Esterase Urine Trace (Negative); Nitrite Urine Negative (Negative); Protein Urine Negative (Negative); Urobilinogen Urine 0.2 (0.2-1.0); pH Urine 6.5 (5.0-8.5)
[2025-03-05 23:18] LABS: Bacteria Urine Few; Squamous Epithelial Cell Urine Moderate (None-Few)
== END 2025-03-06 00:34 | disposition home or self-care (01) ==
PROVIDERS: Emergency Provider Family Medicine; PCP Family Medicine
DX: N92.0 Excessive and frequent menstruation with regular cycle (principal); N83.202 Unspecified ovarian cyst, left side
CPT/HCPCS: 36415; 76830; 76856; 81001; 81025; 85025; 87086; 99284; J7030

== ENCOUNTER 2025-05-28 17:54 | Emergency (ER) | payer OTHER, SELFPAY ==
--- OUTSIDE RECORDS SUMMARY | 2025-05-28 17:56 | XMS_ITS | Clinical Summary ---
Author Organization [facility] Address [address] [place] [id number] Care Team Providers Care Tiler Name Role Phone Akosua Hogan DO Primary Care Provider [phone] Allergies Active Allergy Reactions Criticality Noted Date [...] on file Legal Sex Female 4:26 AM [employer] Gender Identity Not on file Sexual Orientation Not on file Last Filed Vital Signs Vital Sign Reading Time Taken Comments Blood Pressure 111/72 10/16/2019 11:34 AM [employer] Pulse 91 10/16/2019 11:34 AM [employer] Temperature - - Respiratory Rate - - Oxygen Saturation - - Inhaled Oxygen Concentration - - Weight 52.2 kg (115 lb) 10/16/2019 11:34 AM [employer] Height 153.7 cm (5' 0.51) 10/16/2019 11:[address] Body Mass Index 22.08 10/16/2019 11:34 AM [employer] Plan of Treatment Not on file Care Teams Tiler Relationship Specialty Start Date End Date Akosua Hogan DO PCP - General Family Practice 08/09/19
--- OUTSIDE RECORDS SUMMARY | 2025-05-28 17:56 | XMS_ITS | Encounter Summary ---
Author Organization [facility] Address [address] [place] [address] Care Team Providers Care Professional Organizer Name Role Phone Akosua Hogan DO Primary Care Provider Jordyn Leiva NP Unavailable [phone] Encounter Details Date Type Department Care Team (Late st Contact Info) Description 10/06/[address] [phone] Dieter Angulo MD NO INFO AVAILABLE DS 10/09/03 (Primary Dx) Social History Tobacco Use Types Packs/Day Years Used Date Smoking Tobacco: Never Smokeless Tobacco: Never Comments:mom smokes outside Comments Unknown Sex and Gender Information Value Date Recorded Sex Assigned at Not on file 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 Febrile seizure. 2. Rule-out sepsis. 3 . Bilateral otitis media. HOSPITAL COURSE: Gurvinder is a [id number] female who was admitted through the ER [...] [id number] L LEVY CHANEY MD MT: Document: [id number] [place], [place] Name: GURVINDER YOUNG Please refer to the Nursing Discharge Info rmation Sheet for more detailed information regarding diet, physical actvity limitations, medications and other pertinent instructions given to this patient upon discharge. DISCHARGE SUMMARY Page 2 of 1 NAUNN: PRUDENCE DSC: 10/09/2003 [place], [place] Name: MR#: : Admit Date: Discharge Date: GURVINDER YOUNG -60 2002 10/06/2003 10/09/2003 Doctor: MORENITA CHANEY MD [...] Primary documented in this encounter Care Teams Professional Organizer Relationship Specialty Start Date End Date Akosua Hogan DO PCP - General Family Practice 08/09/19 Jordyn Leiva NP [facility] [address] [place] [address] [address] [place] [address] Assigned Behavioral Health Provider 07/31/20 04/20/21 documented as of this encounter
--- OUTSIDE RECORDS SUMMARY | 2025-05-28 17:56 | XMS_ITS | Clinical Summary ---
Author Organization [facility] Address [address] [place] [address] Care Team Providers Care Corrugator Supervisor Name Role Phone Unavailable Primary Care Provider Unavailabl e Source Comments You are receiving this document as you are listed as the primary care provider,follow-up provider, or the patient has been referred to you for consultation.This is in compliance with the Medicare and[facility] E[facility] Incentive Program,which states Providers who transition [...] 04/29/2008, 07/24/2006, Additional history exists Influenza Vaccine (#1) 2025 08/29/2017, 2003 Zoster/Shingles Vaccine (1 of 2) 2052 Hib [...] patient's age to complete this topic [place] [address] [place] [address]
--- OUTSIDE RECORDS SUMMARY | 2025-05-28 17:56 | XMS_ITS | Clinical Summary ---
Author Organization [facility] Address [address] [place] [address] Care Team Providers Care Printed Circuit Board Layout Designer Name Role Phone [facility] Primary Care Provider Kai Cortezdanielre Fany Unavailable Allergies Active Allergy Reactions Criticality Noted Date Comments Melatonin Nausea And Vomiting 10/06/2022 Unlisted Allergen (Include Detail In Comments) Hives,Edema 02/20/2018 Horse flies Pumpkin Hives 02/13/2018 Medications drospirenone-eth inyl estradioL (OKSANA) 3-0.03 mg tabletIndication s:Abnormal uterine bleeding (AUB),Menorrhagi a with regular cycle Take 1 Tablet by mouth once daily. 84 Tablet 04/28/2025 Active Active Problems Problem Noted Date Diagnosed Date Iron deficiency 04/29/2025 Abnormal uterine bleeding (AUB) 04/28/2025 Pap smear for cervical cancer screening 11/16/19 [...] Encounters Date Type Department Care Team Description 05/28/2025 Patient Outreach [facility] Care Management - Care Management Navigation/[facility] [address] [place] [address] Fany Pineda 04/28/2025 2:40 PM CDT Office Visit [facility] [address] [place] [address] Justo Eaton MD Menstrual Problem (endometriosis) 04/28/2025 Travel 04/25/2025 Travel 03/05/2025 Orders Only [facility] Scanner 1 scan: (1-Ord) [facility] TRANSVAG[facility], 03/05/2025 02/25/2025 10:40 AM CDT Office Visit [facility] [address] [place] [address] Justo Eaton MD Menstrual Problem (Spotty, clotting) 02/25/2025 Travel from Last 3 Months Immunizations Immunization Administration Dates Next Due COVID-19 vaccine (Pfizer-Bio NTech 30mcg/0.3mL) 12YO+ BIVALENT PF, MDV 07/24/2022 COVID-19 vaccine (Pfizer-Bio NTech 30mcg/0.3mL) PF, MDV 07/08/2021,06/17/2021 DTaP 04/29/2008, [...] lonely or isolated from those around you? 0 04/25/2025 Financial Resource Strain Answer Date R ecorded Difficulty of Paying Living Expenses 2 04/25/2025 Difficulty of Paying Living Expenses 1 04/25/2025 Food Insecurity Answer Date Recorded Do you worry your food will run out before you are able to buy more? 1 04/25/2025 Transportation Needs Answer Date Record ed Does lack of transportation keep you from medica l appointments? 1 04/25/2025 Does lack of transportation keep you from work, meetings or getting things that you need? 1 04/25/2025 Housing Stability Answer Date Recorded What is your housing situation today? 1 04/25/2025 Utilities Answer Date Recorded Do you have trouble paying f or utilities (for example, heat, electricity, water, phone)? 1 04/25/2025 Comments No Sex and Gender Information Value Date Recorded Sex Assigned at Not on file Legal Sex Female 5:24 AM [employer]PERVIS[employer] EDG[employer] Gender Identity Not on file Sexual Orientation Not on file Obstetrics History Last Filed Vital Signs Vital Sign Reading Time Taken Comments Blood Pressure 118/72 04/28/2025 2:37 PM CDT Pulse 102 04/28/2025 2:37 PM CDT Temperature 36.8 C (98.3 F) 05/25/2022 8:41 PM CDT Respiratory Rate 16 03/29/2021 2:08 PM CDT Oxygen Saturation 97% 11/08/2023 9:10 AM SUPERVISOR EDGING Inhaled Oxygen Concentration - - Weight 68.5 kg (151 lb) 04/28/2025 2:37 PM CDT Height 154.5 cm (5' 0.83) 04/28/2025 2:37 PM CD T Body Mass Index 28.69 04/28/2025 2:37 PM CDT Plan of Treatment Health Maintenance Due Date Last Done Comments COVID-19 vaccine series ( season) 2024 07/24/2022, 07/08/2021, 06/17/2021 Depression screening for age 12+ 11/08/2024 11/08/2023, 11/18/2022, 10/09/2022, Additional history exists Tetanus booster 06/08/2025 06/08/2015 Influenza Vaccine (#1) 2025 08/29/2017, 2003 Chlamydia for age 16-24 02/25/2026 02/26/20, 11/03/2023, 10/27/2023, Additional history exists BMI (ht and wt on same day) for age 18+ 04/28/2026 04/28/2025, 02/25/2025, 11/08/2023, Additional history exists Pap test for age 21-65 11/08/2026 11/08/2023 Pneumococcal series for age 6-49 Aged Out 12/19/2003, 03/11/2003, 01/01/2003, Additional history exists No longer eligible based on patient's age to complete this topic Hepatitis B series for 19+ Completed 07/24, 08/14/2003, 01/01/2003, Additional history exists HPV series for age 9-26 Completed 06/13/20 23, 12/08/2022, 10/06/2022 HIV for age 15-65 Completed 10/27/2023 Hepatitis C screening for age 18-79 Completed 10/27/2023 Procedures Procedure Name Priority Date/Time Associated Diagnosis Comments URINALYSIS MACROSCOPIC - [facility] ONLY POC DIP ([facility]) Routine 04/28/2025 3:23 PM CDT Microscopic hematuria URINE POCT Routine 04/28/2025 3:23 PM CDT Abnormal uterine bleeding (AUB) URINALYSIS MICROSCOPIC Routine 04/28/2025 3:21 PM CDT Microscopic hematuria URINE CULTURE Routine 04/28/2025 3:21 PM CDT Microscopic hematuria ESTRADIOL Routine 04/28/2025 3:14 PM CDT Abnormal uterine bleeding (AUB) Menorrhagia with regular cycle FSH Routine 04/28/2025 3:14 PM CDT Abnormal uterine bleeding (AUB) Menorrhagia with regular cycle CBC WITH AUTO DIFFERENTIAL Routine 04/28/2025 3:14 PM CDT Abnormal uterine bleeding (AUB) Menorrhagia with regular cycle PROLACTIN Routine 04/28/2025 3:14 PM CDT Abnormal uterine bleeding (AUB) Menorrhagia with regular cycle DHEA-SULFATE (DHEA-S) Routine 04/28/2025 3:14 PM CDT Abnormal uterine bleeding (AUB) Menorrhagia with regular cycle FERRITIN Routine 04/28/2025 3:14 PM CDT Abnormal uterine bleeding (AUB) Menorrhagia with regular cycle VITAMIN B12 Routine 04/28/2025 3:14 PM CDT Abnormal uterine bleeding (AUB) Menorrhagia with regular cycle SCAN-ULTRASOUND REPORT 03/05/2025 12:00 AM CDT GC CHLAMYDIA TRACH PROBE Routine 02/25/2025 11:29 AM CDT Screening for chlamydial disease URINALYSIS MICROSCOPIC Routine 02/25/2025 11:29 AM CDT Abnormal uterine bleeding (AUB) URINALYSIS [facility]CROSCOPIC - [facility] ONLY POC DIP ([facility]) Routine 02/25/2025 11:27 AM CDT Abnormal uterine bleeding (AUB) URINE Routine 02/25/2025 11:11 AM CDT Abnormal uterine bleeding (AUB) CBC WITH AUTO DIFFERENTIAL Routine 02/25/2025 11:11 AM CDT Abnormal uterine bleeding (AUB) TSH WITH REFLEX Routine 02/25/2025 11:11 AM CDT Abnormal uterine bleeding (AUB) COMP METABOLIC PANEL Routine 02/25/2025 11:11 AM CDT Abnormal uterine bleeding (AUB) REAL ESTATE ATTORNEY THIN PREP PAP SCREEN IMAGED Routine 11/08/2023 9:35 AM SUPERVISOR [employer]GING Screening for cervical cancer ANTI HIV 1/2 Routine 10/27/2023 11:04 AM SUPERVISOR [employer]GING Screen for STD (sexually transmitted disease) ANTI HCV Routine 10/27/2023 11:04 AM SUPERVISOR [employer] Screen for STD (sexually transmitted disease) from Last 3 Months or Most Recently Relevant to Health Maintenance Results * (ABNORMAL) POCT Urinalysis Dipstick Only [[id number]] (04/28/2025 3:23 PM CDT) Only the most recent of2 resultswithin the time period is included. PH 6.0 5.0 - 8.0 [facility] SPECIFIC GRAVITY 1.025 1.001 - 1.035 [facility] GLUCOSE NEGATIVE NEGATIVE [facility] BILIRUBIN NEGATIVE NEGATIVE [facility] KETONES NEGATIVE NEGATIVE [facility] OCCULT BLOOD TRACE(A) NEGATIVE [facility] PROTEIN NEGATIVE NEGATIVE [facility] NITRITE NEGATIVE NEGATIVE [facility] LEUKOCYTE ESTERASE NEGATIVE NEGATIVE [facility] Urine URINE SPECIMEN / Unknown 04/28/2025 3:23 PM CDT 04/28/2025 3:24 PM CDT Justo Eaton MD URINE Final Result Performing Organization Address City/[facility]/ZIP Co de Phone Number [facility] [address] [place] [address], [place] [phone] [facility] [address], [place] [address] * URINE POCT (04/28/2025 3:23 PM CDT) POC HCG URINE NEGATIVE NEGATIVE [facility] Urine URINE SPECIMEN / Unknown 04/28/2025 3:23 PM CDT 04/28/2025 3:24 PM CDT us Justo Eaton MD URINE Final Result Performing Organization Address City/[facility] Co de Phone Number [facility] [address] [place] [address], [place] [phone] [facility] [address] , [place] [address] * (ABNORMAL) URINALYSIS MICROSCOPIC [92825.1] - routine (04/28/2025 3:21 PM CDT) Only the most recent of2 resultswithin the time period is included. RBC 0-2 0-2, None Seen /HPF 04/29/2025 2:50 AM CDT [facility] WBC 0-2 0-2, 3-5, None Seen /HPF 04/29/2025 2:50 AM CDT [facility] BACTERIA Rare None Seen, Rare, Few Bacteria/ HPF 04/29/2025 2:50 AM CDT [facility] EPITHELIAL CELLS Few None Seen, Few Epi/HPF 04/29/2025 2:50 AM CDT [facility] HYALINE CASTS 0-2 0-2, 3-5 /LPF 04/29/2025 2:50 AM CDT [facility] CALCIUM OXALATE CRYSTALS Present(A) (none) 04/29/2025 2:50 AM CDT [facility] Urine URINE SPECIMEN / Unknown Non-Blood / Unknown 04/28/2025 3:21 PM CDT 04/28/2025 3:21 PM CDT us Justo Eaton MD URINE Final Result Performing Organization Address City/[facility]/ZIP Co de Phone Number [facility] [address] [place] [address], [place] * URINE CULTURE [89217.2] (04/28/2025 3:21 PM CDT) CULTURE <10,000 CFU/mL multiple organisms 04/30/2025 8:54 AM CDT [facility] Urine URINE SPECIMEN / Unknown Non-Blood / Unknown 04/28/2025 3:21 PM CDT 04/28/2025 3:21 PM CDT Justo Eaton MD MICROBIOLOGY Final Result Performing Organization Address City/[facility]/ZIP Co de Phone Number [facility] [address] [place] [address], [place] * (ABNORMAL) CBC AND DIFFERENTIAL (04/28/2025 3:14 PM CDT) Only the most recent of2 resultswithin the time period is included. WHITE BLOOD CELL COUNT 9.9 3.8 - 10.8 Thousand/u L [facility] RED BLOOD CELL COUNT 4.28 3.80 - 5.10 Million/uL [facility] HEMOGLOBIN 11.8 11.7 - 15.5 g/dL [facility] HEMATOCRIT 37.0 35.0 - 45.0 % [facility] MCV 86.4 80.0 - 100.0 fL [facility] MCH 27.6 27.0 - 33.0 pg [facility] MCHC 31.9(L) 32.0 - 36.0 g/dL [facility] Comment: For adults, a slight decrease in the calculated MCHC value (in the range of 30 to 32 g/dL) is most likely not clinically significant; however, it should be interpreted with caution in correlation with other red cell parameters and the patient's clinical condition. RDW 12.8 11.0 - 15.0 % [facility] PLATELET COUNT 392 140 - 400 Thousand/u L [facility] MPV 10.9 7.5 - 12.5 fL [facility] ABSOLUTE NEUTROPHILS 6,425 1,500 - 7,800 cells/uL [facility] ABSOLUTE LYMPHOCYTES 1,931 850 - 3,900 cells/uL [facility] ABSOLUTE MONOCYTES 891 200 - 950 cells/uL [facility] ABSOLUTE EOSINOPHILS 594(H) 15 - 500 cells/uL [facility] ABSOLUTE BASOPHILS 59 0 - 200 cells/uL [facility] NEUTROPHILS 64.9 % [facility] LYMPHOCYTES 19.5 % [facility] MONOCYTES 9.0 % [facility] EOSINOPHILS 6.0 % [facility] BASOPHILS 0.6 % [facility] Blood BLOOD SPECIMEN / Unknown 04/28/2025 3:14 PM CDT 04/28/2025 3:14 PM CDT us Justo Eaton MD HEMATOLOGY Final Result [facility] [address] [place] [address], [place] [phone] [facility] [address] [place] [address] * PROLACTIN (04/28/2025 3:14 PM CDT) Pathologist [facility] PROLACTIN 5.5 ng/mL [facility] Comment: Reference Range Females Non- 3.0-30.0 10.0-209.0 Postmenopausal 2.0-20.0 Blood BLOOD SPECIMEN / Unknown 04/28/2025 3:14 PM CDT 04/28/2025 3:14 PM CDT us Justo Eaton MD SEND OUTS Final Result [facility] [address] [place] [address], [place] [phone] [facility] [address] [place] [address] * FSH (04/28/2025 3:14 PM CDT) Pathologist [facility] FSH 9.2 mIU/mL [facility] Comment: Reference Range Follicular Phase 2.5-10.2 Mid-cycle Peak 3.1-17.7 Luteal Phase 1.5- 9.1 Postmenopausal 23.0-116.3 Blood BLOOD SPECIMEN / Unknown 04/28/2025 3:14 PM CDT 04/28/2025 3:14 PM CDT us Justo Eaton MD CHEMISTRY Final Result Performing Organization Address City/[facility]/ZIP Co de Phone Number [facility] [address] [place] [address], [place] [phone] [facility] [address] [place] [address] * (ABNORMAL) FERRITIN (04/28/2025 3:14 PM CDT) Pathologist [facility] FERRITIN 6(L) 16 - 154 ng/mL [facility] Blood BLOOD SPECIMEN / Unknown 04/28/2025 3:14 PM CDT 04/28/2025 3:14 PM CDT Justo Eaton MD CHEMISTRY Final Result Performing Organization Address [facility] Co de Phone Number [facility] [address] [place] [address], [place] [phone] [facility] [address] [place] [address] * ESTRADIOL (04/28/2025 3:14 PM CDT) ESTRADIOL 67 pg/mL [facility] Comment: Reference Range Follicular Phase: 19-144 Mid-Cycle: 64-357 Luteal Phase: 56-214 Postmenopausal: < or = 31 Reference range established on post-pubertal patient population. No pre-pubertal reference range established using this assay. For any patients for whom low Estradiol levels are anticipated (e.g. males, pre-pubertal children and hypogonadal/post-menopausal females), the [facility] Estradiol, Ultrasensitive, LCMSMS assay is recommended (order code 39941). Please note: patients being treated with the drug fulvestrant (Faslodex(R)) have demonstrated significant interference in immunoassay methods for estradiol measurement. The cross reactivity could lead to falsely elevated estradiol test results leading to an inappropriate clinical assessment of estrogen status. [facility] order code [id number], Ultrasensitive LC/MS/MS demonstrates negligible cross reactivity with fulvestrant. Blood BLOOD SPECIMEN / Unknown 04/28/2025 3:14 PM CDT 04/28/2025 3:14 PM CDT Justo Eaton MD SEND OUTS Final Result Performing Organization Address [facility]/State/ZIP Co de Phone Number [facility] [address] [place] [address], [place] [phone] [facility] [address] [place] [address] * DHEA-SULFATE (DHEA-S) (04/28/2025 3:14 PM CDT) DHEA SULFATE 256 14 - 349 mcg/dL [facility] Blood BLOOD SPECIMEN / Unknown 04/28/2025 3:14 PM CDT 04/28/2025 3:14 PM CDT us Justo Eaton MD SEND OUTS Final Result [facility] [address] [place] [address], [place] [phone] [facility] [address] [place] [address] * VITAMIN B12 (04/28/2025 3:14 PM CDT) VITAMIN B12 658 200 - 1,100 pg/mL [facility] Blood BLOOD SPECIMEN / Unknown 04/28/2025 3:14 PM CDT 04/28/2025 3:14 PM CDT us Justo Eaton MD CHEMISTRY Final Result Performing Organization Address City/[facility]/ZIP Co de Phone Number [facility] [address] [place] [address], [place] [phone] [facility] [address] [place] [address] * SCAN-ULTRASOUND REPORT (03/05/2025 12:00 AM CDT) Anatomical Region Laterality Modality Other us Scanner OTHER Final Result * GC CHLAMYDIA TRACH PROBE [[id number]] (02/25/2025 11:29 AM CDT) CHLAMYDIA PROBE Negative 8:18 PM CDT [facility] N GONORRHOEAE PROBE Negative 02/25/2025 8:18 PM CDT [facility] Other URINE SPECIMEN / Unknown Non-Blood / Unknown 02/25/2025 11:29 AM CDT 02/25/2025 11:29 AM CDT us Justo Eaton MD MICROBIOLOGY Final Result [facility] [address] [place] [address], [place] * TSH WITH REFLEX (02/25/2025 11:11 AM CDT) TSH W/REFLEX TO FT4 1.74 mIU/L [facility] Comment: Reference Range > or = 20 Years 0.40-4.50 Ranges First trimester 0.26-2.66 Second trimester 0.55-2.73 Third trimester 0.43-2.91 Blood BLOOD SPECIMEN / Unknown 02/25/2025 11:11 AM CDT 02/25/2025 11:18 AM CDT Justo Eaton MD CHEMISTRY Final Result Performing Organization Address [facility]/ZIP Co de Phone Number [facility] [address] [place] [address], [place] [phone] [facility] [address] [place] [address] * URINE (02/25/2025 11:11 AM CDT) Pathologist [facility] HCG, QL, URINE NEGATIVE NEGATIVE [facility] Urine URINE SPECIMEN / Unknown 02/25/2025 11:11 AM CDT 02/25/2025 11:18 AM CDT Justo Eaton MD URINE Final Result [facility] [address] [place] [place] [address], [place] [phone] [facility] [address] [place] [address] * COMP METABOLIC PANEL (02/25/2025 11:11 AM CDT) GLUCOSE 87 65 - 99 mg/dL [facility] [...] us Justo Eaton MD CHEMISTRY Final Result [facility] [address] [place] [address], [place] [phone] [facility] [address] [place] [address] * REAL ESTATE ATTORNEY THIN PREP PAP SCREEN IMAGED [[id number]] (11/08/2023 9:35 AM SUPERVISOR EDGING) Case Report Gynecologic Cytology Report Case: [id number] Authorizing Provider: Denice Up DO Collected: 11/08/2023 0935 Ordering Location: [facility] Received: 11/08/[address] [place] [address] First Screen: Sita Pena Specimen: REAL ESTATE ATTORNEY ThinPrep Vial Screening, Cervical 11/16/2023 3:06 PM SUPERVISOR [employer]GING [facility] ENTRAL LABORATORY INTERPRETATION/ RESULT NEGATIVE FOR INTRAEPITHELIAL LESION OR MALIGNANCY (NIL) (none) 11/16/2023 3:06 PM SUPERVISOR EDGING [facility] EN[facility]AL [facility] at [address] SUPERVISOR EDGING SPECIMEN ADEQUACY Satisfactory for evaluation Endocervical component present 11/16/2023 3:06 PM SUPERVISOR EDGING [facility]AL [facility] Date of LMP 10/12/2023 11/16/2023 3:06 PM SUPERVISOR EDGING [facility]- EN[facility]AL LAB[facility] Last Pap Date NA 11/16/2023 3:06 PM SUPERVISOR [employer]GING [facility] Last Pap Result First Pap/Unknown 3:06 PM SUPERVISOR EDGING [facility]- ENTRAL LAB[facility]ATORY Abnormal Pap or Durbin Bx in last 5 years No 11/16/2023 3:06 PM SUPERVISOR EDGING [facility] ENTRAL LABORATORY Menstrual Status Regular Periods 11/16/2023 3:06 PM SUPERVISOR EDGING [facility]AL LAB[facility] Durbin Bx Done Today No 11/16/2023 3:06 PM SUPERVISOR EDGING [facility] ENTRAL LABORATORY Additional Information None given 11/16/2023 3:06 PM SUPERVISOR EDGING [facility]- ENTRAL LABORATORY Comment: Cytology is screened at [facility] [facility], Central Laboratory - [address], [place] [address] and [facility] - [address], [place] [address] and [facility] - [address] [place] [address] Interpreted at [facility] [facility], Central Laboratory - [address], [place] [address] Automated Review Successful 11/16/2023 3:06 PM SUPERVISOR EDGING [facility] ENTRAL LABORATORY Comment:Specimen processed s uccessfully by automated loose hand packer device, [employer] Imaging System, [employer] Note The pap test is a screening technique, not a diagnostic procedure. It is used primarily to screen for squamous cancers and precursor lesions. Published studies have shown that it is subject to both false negative and false positive results. The pap test should not be used as the sole means to diagnose or exclude pre-malignant and malignant lesions. 11/16/2023 3:06 PM SUPERVISOR EDGING [facility] ENTRAL LABORATORY Other (Cervical) Non-Blood / Unknown 11/08/2023 9:35 AM SUPERVISOR EDGING 11/08/2023 10:07 AM SUPERVISOR EDGING us Denice Up DO PATHOLOGY/CYTOLOGY Final Re sult Performing Organization Address [facility]/ZIP Co de Phone Number [facility] [address] [place] [address], [place] * ANTI HCV (10/27/2023 11:04 AM SUPERVISOR EDGING) HEPATITIS C ANTIBODY Non-Reacti ve Non-React tracy 10/27/2023 6:34 PM SUPERVISOR EDGING [facility] Comment:Please note, per www .CDC.gov: If a patient is known to be at high risk of HCV infection, or is symptomatic, and the physician's suspicion of HCV infection is high, HCV RNA testing is often employed and is of diagnostic value, even after an initial negative anti-HCV test result. Blood BLOOD SPECIMEN / Unknown Venipuncture / Unknown 10/27/2023 11:04 AM SUPERVISOR EDGING 10/27/2023 11:04 AM SUPERVISOR EDGING us Justo Eaton MD SEND OUTS Final Result Performing Organization Address [facility]/ZIP Co de Phone Number [facility] [address] [place] [address], [place] * ANTI HIV 1/2 (10/27/2023 11:04 AM SUPERVISOR EDGING) HIV-1/HIV-2 SCREEN Non-Reacti ve Non-Reacti ve 10/27/2023 6:31 PM SUPERVISOR EDGING [facility] Comment:HIV-1 p24 and HIV-1/ HIV-2 Ab Not Detected. Blood BLOOD SPECIMEN / Unknown Venipuncture / Unknown 10/27/2023 11:04 AM SUPERVISOR EDGING 10/27/2023 11:04 AM SUPERVISOR EDGING us Justo Eaton MD SEND OUTS Final Result [facility] [address] [place] [address], from Last 3 Months or Most Recently Relevant to Health Maintenance Advance Directives * Full Code (Latest Code Status on File) Date Activated Date Inactivated Comments 02/13/2018 5:53 PM 02/19/2018 7:52 PM Care Teams Printed Circuit Board Layout Designer Relationship Specialty Start Date End Date [facility] PCP - General 01/15/18 Fany Pineda [address] [facility] [place] [id number] Health Related Social Needs Care Guide 05/21/25
[2025-05-28 18:18] VITALS: BP 142/94; PULSE 86; RESP 16; TEMP 36.7; O2SAT 98; BMI 29.1
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
--- NOTE | 2025-05-28 20:08 | CRLHL7_ITS ---
For Patients: As a result of the Cures Act, medical imaging exams and procedure reports are released immediately into your electronic medical record. You may view this report before your referring provider. If you have questions, please contact your health care provider. INDICATION: Back pain. COMPARISON: None. TECHNIQUE: Lumbar spine 2 views. FINDINGS: Normal vertebral body alignment. No acute fractures. No vertebral body loss of height. No spondylolisthesis. No significant degenerative changes. Normal visualized SI joints. IMPRESSION: No acute findings. Dictated by Dong Aguilera MD @ 05/28/2025 8:38:27 PM (Electronically Signed)
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
[2025-05-28] MEDS: METOCLOPRAMIDE HCL 5 MG/ML INJ 10 MG IVP (20:41)
[2025-05-28] MEDS: LACTATED RINGERS 1000 ML 1,000 ML IV (20:50)
[2025-05-28 21:02] VITALS: BP 120/85; PULSE 88; RESP 18; TEMP 37; O2SAT 100
== END 2025-05-28 21:33 | disposition home or self-care (01) ==
PROVIDERS: Emergency Provider Student in an Organized Health Care Education/Training Program; PCP Family Medicine
DX: S16.1XXA Strain of muscle, fascia and tendon at neck level, initial encounter (principal); S39.012A Strain of muscle, fascia and tendon of lower back, initial encounter; V43.52XA Car driver injured in collision with other type car in traffic accident, initial encounter
CPT/HCPCS: 72040; 72100; 96374; 96375; 99284; J1200; J1885; J2765; J7120